=== PATIENT | male | born 1965 | race Caucasian/White ===

== ENCOUNTER 2017-12-16 18:17 | Observation (INO) ==
--- NOTE | 2017-12-16 18:47 | Emergency Department Note ---
ED Disposition Clinical Impression: Acute appendicitis Qualifiers: Acute appendicitis type: other Qualified Code(s): K35.89 - Other acute appendicitis Disposition: Admitted As Inpatient Condition on Discharge: Good Referrals: Jai Walton MD [Primary Care Provider] - Time of Disposition: 19:32 - Critical Care Critical Care Time: No Attestation: On 12/16/17, the high probability of a clinically significant, sudden or life threatening deterioration of the following system(s) required my full and direct attention, intervention and personal management. The time I documented below is in addition to time spent performing reported procedures but includes the following listed in this critical care notation. Medical Decision Making - Medical Records Medical records reviewed: Yes: I reviewed the patient's medical records. - [place] Inquiry Pt receiving controlled substance: No Vital Signs: 12/16/17 18:22 Temperature 98.3 F Temperature Source Oral Pulse Rate [Left Radial] 69 Respiratory Rate 20 Blood Pressure [Right Arm] 154/97 Blood Pressure Mean [Right Arm] 116 02 Sat by Pulse Oximetry 98 Oxygen Delivery Method Room Air - Lab Data Lab results reviewed: Yes: I reviewed the patient's lab results. Lab Results 12/16/17 18:40: Sodium 139, Potassium 3.9, Chloride 104, Carbon Dioxide 28, Anion Gap 10.9, BUN 15, Creatinine 1.09, Estimated Creat Clear 112, Estimated GFR 71, Est GFR ( Amer) 86, Glucose 121 H, Calcium 10.0, Total Bilirubin 0.4, AST 16, ALT 47, Alkaline Phosphatase 75, Total Protein 7.4, Albumin 4.0, Globulin 3.4 H, Albumin/Globulin Ratio 1.2, Amylase 31, Lipase 113 Result diagrams: 12/16/17 18:40 Orders (Tests/Meds): ED MEDICATIONS Generic Name Dose Route Start Last Admin Trade Name Freq PRN Reason Stop Dose Admin Sodium Chloride 1,000 mls @ 999 mls/hr 12/16/17 18:30 12/16/17 18:42 Sod Chlor 0.9% 1000ml Bag IV 12/16/17 19:30 999 mls/hr .Q1H1M KADE Administration Discontinued Medications Generic Name Dose Route Start Last Admin Trade Name Freq PRN Reason Stop Dose Admin Ketorolac Tromethamine 30 mg 12/16/17 18:26 12/16/17 18:42 Toradol 30mg/Ml Vial IV 12/16/17 18:27 30 mg ONCE ONE Administration Morphine Sulfate 4 mg 12/16/17 18:49 Morphine 4mg/Ml Syringe IV 12/16/17 18:50 ONCE ONE Ondansetron HCl 4 mg 12/16/17 18:26 12/16/17 18:42 Zofran 4mg/2ml Vial IV 12/16/17 18:27 4 mg ONCE ONE Administration ORDERS Category Date Time Status CT abdomen pelvis wo con Stat Cat Scan 12/16/17 18:27 Taken Complete Blood Count Auto Diff Stat Lab 12/16/17 18:40 Received Urinalysis and Microscopic Stat Lab 12/16/17 18:26 Ordered - CT Data CT Scan: Abdomen Time Received: 19:[address] Reviewed: Yes: I have reviewed the patient's CT results, I discussed the CT results w/the radiologist, I have viewed the radiologist's interpretation Preliminary Findings: Abnormal Findings Narrative: Dilated appendix, consistent with early appendicitis. - Physician Consults Physician Consulted: Dr. Mcdaniel Time: 19:31 Reason -: Admission, Pt condition Comment/Response: Advised of patient's presentation and findings, requested to call in eOR crew for laparoscopic appendectomy, will come in the Er to eval pt. Nausea/Vomiting/Diarrhea HPI - General Chief complaint: Nausea/Vomiting/Diarrhea Stated complaint: abd pain Time Seen by Provider: 12/16/17 18:22 Mode of Arrival: Ambulatory Source of Information: Patient Limitations: No Limitations Description of Symptoms (Recalled from ER Triage Doc. by RN): Pt states that he has been feeling nauseated and having abdomen pain all day today. Denies any diarrhea or vomiting. - History of Present Illness HPI Narrative: Patient is a 52-year-old male patient presented to the emergency room with lower abdominal pain, since earlier this morning, associated with nausea, but no vomiting. Patient denies any previous similar episodes in the past. Patient denies any recent travel or exposure to sick contacts. MD complaint: nausea, abdominal pain Description of Vomiting: food contents Associated Abdominal Pain: Yes Location of pain: epigastric Radiation: periumbilical Severity: moderate Severity scale (1-10): 4 Quality: cramping Consistency: intermittent Relieving factors: none Exacerbating factors: eating Associated symptoms: denies other symptoms - Related Data Home Medications Medication Instructions Recorded Confirmed No Known Home Medications 12/16/17 12/16/17 Allergies Allergy/AdvReac Type Severity Reaction Status Date / Time No Known Allergies Allergy Verified 12/16/17 18:28 [facility] History I have reviewed the patient's past medical history: Yes Medical History: Denies:: Diabetes Mellitus Type 1, Diabetes Mellitus Type 2 - Social History Smoking Status: Former smoker Alcohol Intake: current Alcohol Intake Frequency:: holidays/special occasions only - Psychiatric History Expresses thoughts of harming self/others: None Suicide Plan Description: No Plan ROS Obtained: Yes All systems reviewed & no additional complaints, Yes Systems reviewed as appropriate & no additional complaints - Gastrointestinal Gastrointestingal: Reports: system reviewed and no additional complaints, except as docu, as per HPI, abdominal pain, nausea Physical Exam - General General appearance: alert, in distress (moderate) - Head Head exam: atraumatic, normocephalic, normal inspection - Neck Neck exam: Present: normal inspection, full ROM, trachea midline. Absent: meningismus, lymphadenopathy - Chest Chest inspection: Present: normal inspection, symmetric chest wall rise. Absent : tenderness - Respiratory Respiratory exam: Present: normal lung sounds bilaterally. Absent: respiratory distress - Cardiovascular Cardiovascular exam: Present: regular rate, normal rhythm. Absent: JVD - Abdominal Exam Abdominal exam: Present: soft, tenderness (RLQ), guarding, rebound, normal bowel sounds. Absent: distention - Extremities Exam Extremities exam: Present: normal inspection, full ROM, normal capillary refill. Absent: calf tenderness - Back Exam Back exam: Present: normal inspection. Absent: tenderness - Neurological Exam Neurological exam: Present: alert, oriented X3 - Psychiatric Psychiatric exam: Present: normal affect, normal mood - Skin Skin exam: Present: warm, dry, intact, normal color - Lymphatic Lymphatic Findings: no adenopathy
[2017-12-16 18:48] LABS: Basophils # 0.1 K/mm3 (0-0.2); Basophils % 0.4 % (0.1-2.0); Eosinophils # 0.1 K/mm3 (0.0-0.4); Eosinophils % 0.6 % (0.1-12.0); Hematocrit 44.5 % (42.0-52.0); Hemoglobin 14.8 g/dL (14.1-18.0); Lymphocytes # 1.4 K/mm3 (0.7-4.5); Lymphocytes % 11.3 K/mm3 (10-50); Mean Corpuscular HGB Conc 33.3 g/dL (31.8-35.4); Mean Corpuscular Hemoglobin 29.7 pg (27.0-31.2); Mean Corpuscular Volume 89.2 fl (80-94); Mean Platelet Volume 7.8 fl (7.4-10.4); Monocytes # 0.5 K/mm3 (0.1-1.0); Neutrophils # 10.2 K/mm3 (1.8-7.8); Neutrophils % 83.7 % (37.0-80.0); Platelet Count 344 K/mm3 (142-424); Red Blood Count 4.99 M/mm3 (4.60-6.20); Red Cell Distribution Width 13.5 % (11.5-17.5); White Blood Count 12.2 K/mm3 (4.8-10.8)
[2017-12-16 19:16] LABS: Albumin/Globulin Ratio 1.2 (1.1-1.8); Anion Gap 10.9 mEq/L (5-15); Bilirubin,Total 0.4 mg/dL (0.2-1.0); Globulin 3.4 gm/dl (1.3-3.2); Potassium 3.9 mmoL/L (3.5-5.1); Total Protein,Serum 7.4 gm/dL (6.4-8.2)
--- NOTE | 2017-12-16 19:46 | History & Physical Report ---
HPI HPI: Abdominal pain Patient is a 52-year-old white male. He states that he was in his usual state of health until approximately 10:00 this morning at which time he began experiencing mid abdominal pain. He did go to work. He was unable to eat. The pain persisted and became more severe and he presented to the emergency department. He underwent CT scan which revealed findings of 1.7 cm thickened appendix with fat stranding consistent with acute appendicitis. Surgical consultation was obtained. [facility] History Medical History: Denies:: Diabetes Mellitus Type 1, Diabetes Mellitus Type 2 - *Social History Smoking Status: Former smoker Alcohol Intake: current Alcohol Intake Frequency:: holidays/special occasions only - Psychiatric History Expresses thoughts of harming self/others: None Suicide Plan Description: No Plan Review of Systems - Constitutional Reports anorexia - Eyes Denies change in vision - ENT Denies abnormal hearing - *Cardiovascular Denies chest pain - *Respiratory Denies shortness of breath - *Gastrointestinal Reports abdominal pain, Reports bloating - *Genitourinary Denies difficulty urinating - *Musculoskeletal Denies abnormal walking - *Neurologic Denies dizziness - Psychiatric Denies anxiety Meds Home Medications Medication Instructions Recorded Confirmed Type No Known Home Medications 12/16/17 12/16/17 History Allergies Allergy/AdvReac Type Severity Reaction Status Date / Time No Known Allergies Allergy Verified 12/16/17 18:28 Exam Vital signs and Labs for Last 24 Hours: Temp Pulse Resp BP Pulse Ox 98.3 F 69 20 154/97 98 12/16/17 18:22 12/16/17 18:22 12/16/17 18:22 12/16/17 18:22 12/16/17 18:22 Laboratory Results - last 24 hr 12/16/17 18:40: Sodium 139, Potassium 3.9, Chloride 104, Carbon Dioxide 28, Anion Gap 10.9, BUN 15, Creatinine 1.09, Estimated Creat Clear 112, Estimated GFR 71, Est GFR ( Amer) 86, Glucose 121 H, Calcium 10.0, Total Bilirubin 0.4, AST 16, ALT 47, Alkaline Phosphatase 75, Total Protein 7.4, Albumin 4.0, Globulin 3.4 H, Albumin/Globulin Ratio 1.2, Amylase 31, Lipase 113 I & O for Last 24 hours: Intake & Output 12/14/17 12/15/17 12/16/17 12/17/17 11:59 11:59 11:59 11:59 Weight 217 lb - Constitutional no acute distress - *Routine Respiratory Exam Present: CTA bilaterally - *Routine Cardiovascular Exam Present: RRR - *Routine Abdominal Exam Present: tenderness, distended Results - Results Lab Results Last 24 Hours:: Laboratory Results - last 24 hr 12/16/17 18:40: Sodium 139, Potassium 3.9, Chloride 104, Carbon Dioxide 28, Anion Gap 10.9, BUN 15, Creatinine 1.09, Estimated Creat Clear 112, Estimated GFR 71, Est GFR ( Amer) 86, Glucose 121 H, Calcium 10.0, Total Bilirubin 0.4, AST 16, ALT 47, Alkaline Phosphatase 75, Total Protein 7.4, Albumin 4.0, Globulin 3.4 H, Albumin/Globulin Ratio 1.2, Amylase 31, Lipase 113 Assessment and Plan - Assessment and plan all Dx Assessment and Plan for all problems:: Patient has CT scan evidence consistent with acute appendicitis. Plan will be for emergent appendectomy.
--- NOTE | 2017-12-16 20:24 | Progress Note ---
[facility] Anesthesia Checklist - Patient Identification Patient Identification: Arm Band, Verbal (Name & ) - Structural Data Admitted From: Home Consent for Planned Operative Procedure(s) Verified: Yes Verified Documents: Surgical Consent, History and Physical - NPO Status Verified Time NPO: 08:00 (Chips) - Additional verifications Anesthesia Reactions: No - Airway Assessment C-Spine Mobility Assessed: Yes TMJ Mobility Assessed: Yes Dentition: Good Dentition - Neurological Assessment Level of Consciousness: Awake Hx Seizures: No Numbness or tingling in extremities: No - Anesthesia Plan Anesthesia Risk discussed: Yes Anesthesia Plan: Verified ASA Class: II Anesthesia Type: General [facility] Anesthesia HX I have reviewed the patient's past medical history: Yes Medical History: Reports:: Hyperlipidemia Denies:: Diabetes Mellitus Type 1, Diabetes Mellitus Type 2, Seizures Other Medical History: Reports: Other (Obesity, former smoker 08/2017) Other Surgeries: Yes: Colonoscopy Amputation: No Fractures: No
--- NOTE | 2017-12-16 22:00 | Operative Note ---
Date of procedure: 12/16/17 Pre-op Diagnosis:: Acute appendicitis Post-op Diagnosis:: Same Procedure performed:: Laparoscopic appendectomy Surgeon:: Kj Mcdaniel MD Anesthesia: BELLE Estimated blood loss (mL): 20 Clinical Note:: Patient is a 52-year-old white male. He was in his usual state of health until earlier in the day on 12/16/17 at which time he experienced mid abdominal pain. He actually did go to work. He was unable to eat lunch. Pain persisted and progressed and he presented to the emergency department in the early evening of 12/16/17. He was found to have a mild leukocytosis and CT scan revealed findings of a severely distended appendix measuring 1.7 cm with fat stranding. Surgical consultation was obtained. Patient was seen and examined as consult in the emergency department and plan was made for appendectomy. Operative findings:: Patient had a markedly distended very tense but nonnecrotic appendicitis. It was partially retrocecal. Operative note:: Consent was obtained. Patient was taken to the operating room. He was given preoperative intravenous antibiotics. He was placed in a supine position. General anesthesia was induced. Abdomen was prepped and draped in the standard surgical fashion. Please note the Correa catheter was placed prior to prepping and draping. Subumbilical skin incision was made and while performing abdominal wall lift Veress needle was inserted. CO2 pneumoperitoneum was achieved to 15 mmHg. 12 mm optical trocar was inserted at the umbilicus. Intraperitoneal contents were visualized. He was positioned in Trendelenburg left side down. 5 mm trocar was inserted in the left lower quadrant. 5 mm trocar was inserted in the right upper abdomen. 0 laparoscope was replaced with the 5 mm 30 laparoscope. Appendix was easily identified but dissection to the appendiceal base was quite difficult. Appendix was grasped with an endoscopic Trenary. There appeared to be some acute and chronic adhesions to the appendix and it was somewhat corkscrewed and the base of the appendix was retrocecal. Dissection to the base of the appendix required some division of the peritoneal attachments laterally. Metzenbaum and blunt dissection was used. Ultimately dissection was carried down to the base of the appendix. The mesoappendix was divided with David ultrasonic harmonic lily with care taken to coagulate the appendiceal artery. Once dissection was clearly carried down to the appendiceal base the appendix was divided at its base with an endoscopic TAY linear cutting stapling device. The appendix was placed within an Endo Catch retrieval device and removed from the peritoneal cavity via the umbilical trocar site which required some extension of both the fascial and skin incision for delivery. The pericecal location was irrigated and aspirated until clear. Appendiceal staple line was inspected for hemostasis and integrity. Trochars were removed as CO2 pneumoperitoneum was evacuated. Fascia at the umbilicus was closed with interrupted 0 Vicryl sutures. Local anesthetic was infiltrated into all incisions. Skin incisions were closed with 4-0 Monocryl in a subcuticular fashion. Steri-Strips and dressings were applied. Condition: stable Disposition: PACU Specimens:: Appendix Complications:: None immediate
--- NOTE | 2017-12-16 22:13 | Progress Note ---
[facility] Anesthesia Record Part I Intake, IV Amount: 800 Estimated blood loss (mL): 20 Urine output (mL): 100 Blood Products used (#): none Blood Pressure: 151/96 SaO2: 96 Pulse Rate: 93 Respiratory Rate: 15 Temperature: 97.5 F Patient is:: Awake, Stable Stable to PACU at:: 22:07
--- NOTE | 2017-12-16 22:14 | Progress Note ---
[facility] Anesthesia Record Part II Discharge Time: 22:37 Destination: Medical Surgical Department PACU nurse assessment reviewed?: Yes Patient Condition:: Good Anesthesia Complications:: None
[2017-12-16 23:59] LABS: Appearance,Urine CLEAR (Clear); Bilirubin,Urine Negative (Negative); Blood, Urine Negative (Negative); Color,Urine YELLOW (Yellow); Glucose,Urine (UA) Negative (Negative); Ketones,Urine 1+ (Negative); Leukocyte Esterase,Urine Negative (Negative); Microscopic, Urine URINE MICROSCOPIC (MICROSCOPIC); PH,Urine 5.5 (5.0-8.5); Protein,Urine TRACE (Negative); Specific Gravity, Urine >= 1.030 (1.005-1.030); Urobilinogen,Urine 0.2 EU/dl (0.2)
[2017-12-17 00:09] LABS: Bacteria,Urine Trace /lpf; Fine Granular Casts,Urine Occasional #/lpf (0); Hyaline Casts,Urine Occasional #/lpf (0); Mucus,Urine 1+ /lpf; Squamous Epithelial Cell,Urine Occasional #/hpf (0-5)
[2017-12-17 06:03] LABS: Albumin Level 3.1 gm/dL (3.4-5.0); Albumin/Globulin Ratio 1.1 (1.1-1.8); Anion Gap 11.3 mEq/L (5-15); Bilirubin,Total 0.4 mg/dL (0.2-1.0); Globulin 2.9 gm/dl (1.3-3.2); Potassium 4.3 mmoL/L (3.5-5.1)
[2017-12-17 06:10] LABS: Calcium 8.5 mg/dL (8.5-10.1)
--- NOTE | 2017-12-17 07:04 | Progress Note ---
Subjective Patient reports: feels better Narrative: Patient overall feels better. He is tolerating clear liquids. Exam Vital signs and Labs for Last 24 Hours: Temp Pulse Resp BP Pulse Ox 98.0 F 72 18 119/64 97 12/17/17 05:45 12/17/17 05:45 12/17/17 05:45 12/17/17 05:45 12/17/17 05:45 Laboratory Results - last 24 hr 12/16/17 18:40: WBC 12.2 H, RBC 4.99, Hgb 14.8, Hct 44.5, MCV 89.2, MCH 29.7, MCHC 33.3, RDW 13.5, Plt Count 344, MPV 7.8, Neut % (Auto) 83.7 H, Lymph % (Auto ) 11.3, [place] % (Auto) 4.0, Eos % (Auto) 0.6, Baso % (Auto) 0.4, Neut # (Auto) 10.2 H, Lymph # (Auto) 1.4, [place] # (Auto) 0.5, Eos # (Auto) 0.1, Baso # (Auto) 0.1 12/16/17 18:40: Sodium 139, Potassium 3.9, Chloride 104, Carbon Dioxide 28, Anion Gap 10.9, BUN 15, Creatinine 1.09, Estimated Creat Clear 112, Estimated GFR 71, Est GFR ( Amer) 86, Glucose 121 H, Calcium 10.0, Total Bilirubin 0.4, AST 16, ALT 47, Alkaline Phosphatase 75, Total Protein 7.4, Albumin 4.0, Globulin 3.4 H, Albumin/Globulin Ratio 1.2, Amylase 31, Lipase 113 12/16/17 20:45: Urine Color Yellow, Urine Appearance Clear, Urine pH 5.5, Ur Specific [place] >= 1.030, Urine Protein Trace, Urine Glucose (UA) Negative, Urine Ketones 1+, Urine Blood Negative, Urine Nitrate Negative, Urine Bilirubin Negative, Urine Urobilinogen 0.2, Ur Leukocyte Esterase Negative, Urine RBC 5-10 , Urine WBC 3-5, Ur Squamous Epith Cells Occasional, Urine Bacteria Trace, Hyaline Casts Occasional, Fine Granular Casts Occasional, Urine Mucus 1+ 12/17/17 05:20: Sodium 137, Potassium 4.3, Chloride 104, Carbon Dioxide 26, Anion Gap 11.3, BUN 12, Creatinine 1.03, Estimated Creat Clear 127, Estimated GFR 76, Est GFR ( Amer) 92, Glucose 126 H, Calcium 8.5 D, Total Bilirubin 0.4, AST 15, ALT 37, Alkaline Phosphatase 62, Total Protein 6.0 L, Albumin 3.1 L D, Globulin 2.9, Albumin/Globulin Ratio 1.1 I & O for Last 24 hours: Intake & Output 12/14/17 12/15/17 12/16/17 12/17/17 11:59 11:59 11:59 11:59 Intake Total 1693 / 1693 Output Total 700 / 700 Balance 993 / 993 Weight 233 lb 3 oz - *Routine Abdominal Exam Present: soft, distended Progress Note: A&P Assessment and Plan for All Diagnoses:: Advance to full liquids. Check white blood cell count. Probable discharge later.
[2017-12-17 10:53] LABS: Basophils % 0.1 % (0.1-2.0); Eosinophils # 0.1 K/mm3 (0.0-0.4); Eosinophils % 1.2 % (0.1-12.0); Hematocrit 37.3 % (42.0-52.0); Lymphocytes # 1.8 K/mm3 (0.7-4.5); Lymphocytes % 18.4 K/mm3 (10-50); Mean Corpuscular HGB Conc 32.3 g/dL (31.8-35.4); Mean Corpuscular Hemoglobin 28.6 pg (27.0-31.2); Mean Corpuscular Volume 88.4 fl (80-94); Mean Platelet Volume 8.4 fl (7.4-10.4); Monocytes # 0.7 K/mm3 (0.1-1.0); Neutrophils # 7.2 K/mm3 (1.8-7.8); Neutrophils % 73.3 % (37.0-80.0); Platelet Count 301 K/mm3 (142-424); Red Blood Count 4.22 M/mm3 (4.60-6.20); Red Cell Distribution Width 13.6 % (11.5-17.5); White Blood Count 9.8 K/mm3 (4.8-10.8)
[2017-12-17 11:06] LABS: Hemoglobin 12.1 g/dL (14.1-18.0)
--- NOTE | 2017-12-17 13:47 | Discharge Summary ---
General - General Admission date:: 12/16/17 Discharge date: 12/17/17 HPI HPI: Abdominal pain Patient is a 52-year-old white male. He states that he was in his usual state of health until approximately 10:00 this morning at which time he began experiencing mid abdominal pain. He did go to work. He was unable to eat. The pain persisted and became more severe and he presented to the emergency department. He underwent CT scan which revealed findings of 1.7 cm thickened appendix with fat stranding consistent with acute appendicitis. Surgical consultation was obtained. Hospital Course Hospital Course: Patient was taken to the operating room in the evening of 12/16/17 and underwent laparoscopic appendectomy. He was found to have a significantly inflamed but non-perforated appendicitis. Please see operative dictation for complete details. Postoperatively he was continued on Unasyn. He was given a clear liquid diet. The following morning white blood cell count had normalized. He was advanced to a full liquid diet which he tolerated well at lunch time. Arrangements were made for discharge home early after lunch on postoperative day #1. Objective Vital signs: Temp Pulse Resp BP Pulse Ox 98.6 F 55 L 18 114/65 95 12/17/17 11:45 12/17/17 11:45 12/17/17 11:45 12/17/17 11:45 12/17/17 11:45 - *Routine Abdominal Exam Present: soft, distended Results Labs on day of discharge: Labs from last 24 hours 12/17/17 12/17/17 12/16/17 10:45 05:20 20:45 WBC 9.8 RBC 4.22 L Hgb 12.1 L D Hct 37.3 L MCV 88.4 MCH 28.6 MCHC 32.3 RDW 13.6 Plt Count 301 MPV 8.4 Neut % (Auto) 73.3 Lymph % (Auto) 18.4 [place] % (Auto) 7.0 Eos % (Auto) 1.2 Baso % (Auto) 0.1 Neut # (Auto) 7.2 Lymph # (Auto) 1.8 [place] # (Auto) 0.7 Eos # (Auto) 0.1 Baso # (Auto) 0.0 Sodium 137 Potassium 4.3 Chloride 104 Carbon Dioxide 26 Anion Gap 11.3 BUN 12 Creatinine 1.03 Estimated Creat Clear 127 Estimated GFR 76 Est GFR ( Amer) 92 Glucose 126 H Calcium 8.5 D Total Bilirubin 0.4 AST 15 ALT 37 Alkaline Phosphatase 62 Total Protein 6.0 L Albumin 3.1 L D Globulin 2.9 Albumin/Globulin Ratio 1.1 Amylase Lipase Urine Color Yellow Urine Appearance Clear Urine pH 5.5 Ur Specific [place] >= 1.030 Urine Protein Trace Urine Glucose (UA) Negative Urine Ketones 1+ Urine Blood Negative Urine Nitrate Negative Urine Bilirubin Negative Urine Urobilinogen 0.2 Ur Leukocyte Esterase Negative Urine RBC 5-10 Urine WBC 3-5 Ur Squamous Epith Cells Occasional Urine Bacteria Trace Hyaline Casts Occasional Fine Granular Casts Occasional Urine Mucus 1+ 12/16/17 12/16/17 18:40 18:40 WBC 12.2 H RBC 4.99 Hgb 14.8 Hct 44.5 MCV 89.2 MCH 29.7 MCHC 33.3 RDW 13.5 Plt Count 344 MPV 7.8 Neut % (Auto) 83.7 H Lymph % (Auto) 11.3 [place] % (Auto) 4.0 Eos % (Auto) 0.6 Baso % (Auto) 0.4 Neut # (Auto) 10.2 H Lymph # (Auto) 1.4 [place] # (Auto) 0.5 Eos # (Auto) 0.1 Baso # (Auto) 0.1 Sodium 139 Potassium 3.9 Chloride 104 Carbon Dioxide 28 Anion Gap 10.9 BUN 15 Creatinine 1.09 Estimated Creat Clear 112 Estimated GFR 71 Est GFR ( Amer) 86 Glucose 121 H Calcium 10.0 Total Bilirubin 0.4 AST 16 ALT 47 Alkaline Phosphatase 75 Total Protein 7.4 Albumin 4.0 Globulin 3.4 H Albumin/Globulin Ratio 1.2 Amylase 31 Lipase 113 Urine Color Urine Appearance Urine pH Ur Specific [place] Urine Protein Urine Glucose (UA) Urine Ketones Urine Blood Urine Nitrate Urine Bilirubin Urine Urobilinogen Ur Leukocyte Esterase Urine RBC Urine WBC Ur Squamous Epith Cells Urine Bacteria Hyaline Casts Fine Granular Casts Urine Mucus DS: Diagnosis - Discharge Diagnosis (1) Acute appendicitis Status: Acute Discharge Plan - Patient Discharge Instructions ACTIVITY: No heavy lifting DIET: advance to your usual diet Additional Instructions: Work excuse until after office appointment. - Follow up Plan Follow up with: Jai Walton MD [Primary Care Provider] - Kj Mcdaniel MD [Staff Physician] - 01/03/18 Disposition: Home, Self-Detention Medications: Home Medications Medication Instructions Recorded Confirmed Type Pravastatin Sodium 10 mg PO DAILY 12/17/17 12/17/17 History Varenicline Tartrate [Chantix 1mg 1 mg PO BID 12/17/17 12/17/17 History tablet] Prescriptions/Medication Reconciliation: New Hydrocod/Acet 5/325 mg [[place] 5/325mg tablet] 1 - 2 tab PO Q6HP PRN #21 tab PRN Reason: Moderate Pain Continue Pravastatin Sodium 10 mg PO DAILY Varenicline Tartrate [Chantix 1mg tablet] 1 mg PO BID
== END 2017-12-17 14:33 | disposition home or self-care (01) ==
LOC: ER 18:17 → SDC 20:30 → 2ND 20:32
PROVIDERS: ADMIT Surgery; ATTEND Surgery
CPT/HCPCS: 36415; 74176; 80053; 81001; 82150; 83690; 85025; 96365; 96375; 99284; G0378; J2405

== ENCOUNTER → 2020-01-08 16:35 | Outpatient (CLI) | payer BC, SELFPAY ==
[2020-01-08 17:05] LABS: Basophils # 0.1 K/mm3 (0-0.2); Basophils % 0.6 % (0.1-2.0); Eosinophils # 0.1 K/mm3 (0.0-0.4); Eosinophils % 1.2 % (0.1-12.0); Hematocrit 44.2 % (42.0-52.0); Hemoglobin 15.8 g/dL (14.1-18.0); Lymphocytes # 2.6 K/mm3 (0.7-4.5); Lymphocytes % 30.6 % (10-50); Mean Corpuscular HGB Conc 35.7 g/dL (31.8-35.4); Mean Corpuscular Hemoglobin 31.2 pg (27.0-31.2); Mean Corpuscular Volume 87.4 fl (80-94); Mean Platelet Volume 8.1 fl (7.4-10.4); Monocytes # 0.5 K/mm3 (0.1-1.0); Monocytes % 6.1 % (1.7-9.3); Neutrophils # 5.2 K/mm3 (1.8-7.8); Neutrophils % 61.5 % (37.0-80.0); Platelet Count 339 K/mm3 (142-424); Red Blood Count 5.06 M/mm3 (4.60-6.20); Red Cell Distribution Width 13.2 % (11.5-17.5); White Blood Count 8.4 K/mm3 (4.8-10.8)
[2020-01-08 17:09] LABS: Erythrocyte Sedimentation Rate 9 mm/hr (0-20)
[2020-01-08 17:33] LABS: Alanine Aminotransferase 52 U/L (12-78); Alkaline Phosphatase 69 U/L (38-126); Anion Gap 13.7 mEq/L (5-15); Aspartate Amino Transferase 31 U/L (17-59); Bilirubin,Total 0.7 mg/dl (0.2-1.3); Blood Urea Nitrogen 12 mg/dl (9-20); Calcium 10.5 mg/dl (8.4-10.2); Carbon Dioxide 27 mmol/L (22.0-30.0); Chloride 101 mmol/L (98-107); Chol/HDL Ratio 2.7 (1-3.5); Cholesterol 186 mg/dl (140-200); Estimated Glomerular Filt Rate 88 ml/min (>60); GFR (African American) 107 ML/MIN (>60); Globulin 2.5 g/dL (1.3-3.2); Glucose 114 mg/dl (74-100); HDL Cholesterol 69 mg/dl (40-60); Potassium 4.7 mmoL/L (3.5-5.1); Sodium 137 mmol/L (136-145); Total Protein,Serum 7.5 g/dl (6.3-8.2); Triglycerides 160 mg/dl (30-150); VLDL Cholesterol 32 mg/dL (0-40)
[2020-01-08 17:44] LABS: Direct LDL Cholesterol 106.05 mg/dL (100-129)
[2020-01-08 17:50] LABS: Free T4 (Free Thyroxine) 1.11 ng/dl (0.78-2.19)
[2020-01-08 18:03] LABS: Thyroid Stimulating Hormone 1.75 uIU/mL (0.465-4.68)
== END ==
PROVIDERS: Visit Provider Emergency Medicine
DX: R53.83 Other fatigue (principal); E55.9 Vitamin D deficiency, unspecified; E78.5 Hyperlipidemia, unspecified; E66.9 Obesity, unspecified
CPT/HCPCS: 80053; 80061; 82306; 84439; 84443; 85025; 85651

== ENCOUNTER 2020-03-11 11:00 | Outpatient (RCR) | payer BC, SELFPAY ==
--- NOTE | 2020-03-11 11:28 | HMH.PTOPEV ---
PT Outpatient Evaluation Rehab PT Outpatient Evaluation Start: 03/11/20 11:19 Freq: Status: Active Protocol: Document 03/11/20 11:19 KATHLEEN (Rec: 03/11/20 11:28 KATHLEEN [id number]) Electronically Signed By Maurice Tipton, PT 03/11/20 11:19 Outpatient Therapy Subjective History Subjective History Pt reports h/o chronic bilateral leg pain for ~2 yrs. Pt reports intermittent LBP, however, 'I don't really feel like it's related, just normal gettin' older back pain'. Pt reports currently B thigh/quad area pain from hip to knee, R =L. Chief Complaint Pain Symptom Type Ache,Sharp,Dull Symptoms Relieved By Rest/Positioning,Heat Symptoms Aggravated By Standing,Walking Prior Functional Limitations Lifting,Standing,Walking Current Functional Limitations Lifting,Standing,Walking Symptom Description Constant but Variable Level of pain today (0-10) 7 Pain scale - at its best (0-10) 7 Pain scale - at its worst (0-10) 7 Lumbopelvic Eval Posture Thoracic Spine Posture Standing Position Neutral Lumbar Spine Posture Standing Position Neutral Assistive device Assistive Devices None / NA Gait Observation General Gait Pattern Observation No Deviations/Normal Palapation tenderness bilateral lumbar spinal tenderness Yes: 2/4 Lumbar/Sacral Palpation Findings Tenderness Lumbar/Sacral Palpation Overall Comment 2/4 midline Accessory Movement L-spine Vertebrae Accessory Movements Central P/A [place] that [place] Symptoms L2 bilateral L3 bilateral L4 bilateral L5 bilateral Range of Motion Lumbar Spine Active Flexion Range of 0-70 Motion (degrees) Lumbar Spine Active Extension Range of 0-10 Motion (degrees) Left Lumbar Spine Lateral Flexion Active 0-20 Range of Motion (degrees) Right Lumbar Spine Lateral Flexion 0-20 Active Range of Motion (degrees) Lumbar Spine ROM Limitations Soft Tissue Tightness,Pain Manual Muscle Test Bilateral Knee Extension Strength Grade 5 Normal Knee Flexion Strength Grade 5 Normal Hip Flexion Strength Grade 5 Normal Hip Abduction Strength Grade 4 Good Hip Adduction Strength Grade 4 Good Hip External Rotation Strength Grade 4 Good Hip Internal Rotation Strength Grade 4 Good Hip Extension Strength Grade 5 Normal Extensor Hallucis Longus Strength Grade 5 Normal Ankle Dorsiflexion Strength Grade 5 Normal Gastronemius/Soleus Strength Grade 5 Normal D
== END 2020-03-11 11:49 | disposition home or self-care (01) ==
LOC: PT 11:00
PROVIDERS: PCP Emergency Medicine; Visit Provider Emergency Medicine
DX: M54.9 Dorsalgia, unspecified (principal)
CPT/HCPCS: 97163

== ENCOUNTER → 2020-10-14 13:50 | Outpatient (CLI) | payer BC, SELFPAY ==
[2020-10-14 14:56] LABS: Amphetamine/Metha Screen,Urine Negative ng/ml (<1000)
[2020-10-14 14:57] LABS: Barbiturates Screen,Urine Negative ng/ml (<200)
[2020-10-14 14:58] LABS: Benzodiazepines Screen,Urine Negative ng/ml (<200); Cannabinoid Screen,Urine Negative ng/ml (<50)
[2020-10-14 14:59] LABS: Cocaine Screen,Urine Negative ng/ml (<300); Methadone Screen,Urine Negative ng/ml (<300)
[2020-10-14 15:00] LABS: Opiate Screen,Urine Negative ng/ml (<300)
[2020-10-14 15:01] LABS: Phencyclidine Screen,Urine Negative ng/ml (<25)
== END ==
PROVIDERS: Visit Provider Emergency Medicine
DX: Z79.899 Other long term (current) drug therapy (principal)
CPT/HCPCS: 80305

== ENCOUNTER → 2020-11-15 16:24 | Outpatient (CLI) | payer BC, SELFPAY ==
[2020-11-15 17:43] LABS: Coronavirus 19 IgG Antibody Positive (Negative); Coronavirus 19 IgM Antibody Negative (Negative)
== END ==
PROVIDERS: PCP Emergency Medicine; Visit Provider Surgery
DX: Z01.812 Encounter for preprocedural laboratory examination (principal); Z20.822 Contact with and (suspected) exposure to COVID-19; Z12.11 Encounter for screening for malignant neoplasm of colon
CPT/HCPCS: 86328

== ENCOUNTER 2020-11-16 09:01 | Day surgery (SDC) | payer BC, SELFPAY ==
[2020-11-15 09:11] VITALS: BMI 32.8
[2020-11-16 09:29] VITALS: BP 147/83; PULSE 81; RESP 18; TEMP 36.6; O2SAT 97
[2020-11-16 10:15] VITALS: O2SAT 97
[2020-11-16 10:59] VITALS: BP 92/68; PULSE 80; RESP 18; TEMP 36.4; O2SAT 98
--- NOTE | 2020-11-16 11:03 | P.PCN_ITS ---
- Procedure: Date: 11/16/20 Patient Date of :: 1965 Procedure Performed:: Total colonoscopy to terminal ileum with polypectomy using snare and biopsy forceps Indications:: Patient is a 55-year-old male whom I have seen in the past for previous colonoscopy as well as for appendectomy. He underwent colonoscopy on 03/26/2017 and had polyps removed. He does have a family history and his father had of colon cancer diagnosed at the age of 56. He is currently asymptomatic. Performing Provider:: Kj Mcdaniel MD Referring Provider:: Leo Osborn MD Sedation:: MAC sedation Procedure:: Patient was taken to endoscopy procedure room. He was positioned in lateral decubitus position. Adequate intravenous sedation was achieved. Variable sti ffness Olympus colonoscope was inserted via the anus. Was advanced to the cecum with some difficulty due to floppy redundant somewhat atonic colon, particularly sigmoid colon. The ileocecal valve and appendiceal remnant were clearly identified. Colonoscope was briefly advanced into the terminal ileum. Colonoscope was withdrawn through the colon with careful surveillance. At the hepatic flexure there was a small diminutive benign-appearing polyp removed with cold cutting snare. Transverse colon revealed a polyp removed with cold biopsy forceps and residual polyp with snare. The sigmoid colon there was a somewhat pedunculated polyp removed with cold cutting snare. Retroflexion within the rectum revealed no evidence of any pathologic internal hemorrhoids. Colonoscope was withdrawn. Findings:: Small polyps as noted Somewhat atonic redundant sigmoid colon Recommendations:: Likely repeat colonoscopy 3 years Complications:: None immediately apparent Estimated blood obtained (mL): 2
[2020-11-16 11:09] VITALS: BP 114/68; PULSE 70; RESP 16; O2SAT 95
[2020-11-16 11:19] VITALS: BP 117/80; PULSE 80; RESP 16; O2SAT 95
--- NOTE | 2020-11-16 11:22 | P.PN_ITS ---
[facility] Anesthesia Checklist - Patient Identification Patient Identification: Arm Band - Structural Data Admitted From: Home Planned Operative Procedure/s: Colonoscopy Consent for Planned Operative Procedure(s) Verified: Yes Verified Documents: Surgical Consent, History and Physical - NPO Status Verified Time NPO: 00:00 - Additional verifications Anesthesia Reactions: No Hx Blood Transfusions: No - Airway Assessment C-Spine Mobility Assessed: Yes TMJ Mobility Assessed: Yes Dentition: Good Dentition - Neurological Assessment Level of Consciousness: Awake, Alert - Anesthesia Plan Anesthesia Risk discussed: Yes Anesthesia Plan: Verified ASA Class: II Anesthesia Type: MAC [facility] History Medical History: Reports:: Hyperlipidemia Denies:: Cancer, Diabetes Mellitus Type 1, Diabetes Mellitus Type 2, Internal Pacemaker, MRSA, Seizures *Have you ever received a pneumonia vaccine?: No *Have you received a flu vaccine this season?: No Other Medical History: Reports: Other Anesthesia experience/problems:: None Other Surgeries: Yes: Appendectomy, Colonoscopy. No: Pacemaker Amputation: No Fractures: No - *Social History Smoking Status: Former smoker Tobacco Type: smokeless tobacco # Packs/Day (cigarettes): 1 Alcohol Intake: never Alcohol Intake Frequency:: holidays/special occasions only Substance Use Type: denies use *Occupational Status:: employed Housing: house *Travel in the last 8 weeks: None Family Hx:: No significant family history
[2020-11-16 11:29] VITALS: BP 116/79; PULSE 72; RESP 18; O2SAT 95
== END 2020-11-16 11:29 | disposition home or self-care (01) ==
LOC: OUTP 09:02
PROVIDERS: PCP Emergency Medicine; Visit Provider Surgery
PROC: 0DJD8ZZ Inspection of Lower Intestinal Tract, Via Natural or Artificial Opening Endoscopic (ICD-10-PCS; CPT 45385; principal; 2020-11-16 10:00)
DX: Z12.11 Encounter for screening for malignant neoplasm of colon (principal); Z86.010 Personal history of colon polyps; Z80.0 Family history of malignant neoplasm of digestive organs; K63.5 Polyp of colon; K56.2 Volvulus; E78.5 Hyperlipidemia, unspecified; Z90.49 Acquired absence of other specified parts of digestive tract; Z87.891 Personal history of nicotine dependence
CPT/HCPCS: 45385; J2704

== ENCOUNTER → 2020-12-19 18:05 | Outpatient (CLI) | payer BC, SELFPAY ==
[2020-12-19 19:18] LABS: Amphetamine/Metha Screen,Urine Negative ng/ml (<1000); Barbiturates Screen,Urine Negative ng/ml (<200)
[2020-12-19 19:19] LABS: Benzodiazepines Screen,Urine Negative ng/ml (<200)
[2020-12-19 19:20] LABS: Cannabinoid Screen,Urine Negative ng/ml (<50)
[2020-12-19 19:21] LABS: Cocaine Screen,Urine Negative ng/ml (<300)
[2020-12-19 19:22] LABS: Methadone Screen,Urine Negative ng/ml (<300); Opiate Screen,Urine Negative ng/ml (<300)
[2020-12-19 19:24] LABS: Phencyclidine Screen,Urine Negative ng/ml (<25)
== END ==
PROVIDERS: Visit Provider Emergency Medicine
DX: Z79.899 Other long term (current) drug therapy (principal)
CPT/HCPCS: 80305

== ENCOUNTER → 2021-02-15 18:04 | Outpatient (CLI) | payer BC, SELFPAY ==
[2021-02-15 19:25] LABS: Amphetamine/Metha Screen,Urine Negative ng/ml (<1000)
[2021-02-15 19:26] LABS: Barbiturates Screen,Urine Negative ng/ml (<200)
[2021-02-15 19:27] LABS: Benzodiazepines Screen,Urine Negative ng/ml (<200); Cannabinoid Screen,Urine Negative ng/ml (<50)
[2021-02-15 19:28] LABS: Cocaine Screen,Urine Negative ng/ml (<300); Methadone Screen,Urine Negative ng/ml (<300)
[2021-02-15 19:29] LABS: Opiate Screen,Urine Positive ng/ml (<300)
[2021-02-15 19:30] LABS: Phencyclidine Screen,Urine Negative ng/ml (<25)
== END ==
PROVIDERS: Visit Provider Emergency Medicine
DX: M54.16 Radiculopathy, lumbar region (principal)
CPT/HCPCS: 80305

== ENCOUNTER → 2021-06-16 17:51 | Outpatient (CLI) | payer BC, SELFPAY ==
[2021-06-16 19:49] LABS: Amphetamine/Metha Screen,Urine Negative ng/ml (<1000)
[2021-06-16 19:50] LABS: Barbiturates Screen,Urine Negative ng/ml (<200); Benzodiazepines Screen,Urine Negative ng/ml (<200)
[2021-06-16 19:51] LABS: Cannabinoid Screen,Urine Negative ng/ml (<50)
[2021-06-16 19:52] LABS: Cocaine Screen,Urine Negative ng/ml (<300); Methadone Screen,Urine Negative ng/ml (<300)
[2021-06-16 19:53] LABS: Opiate Screen,Urine Positive ng/ml (<300)
[2021-06-16 19:54] LABS: Phencyclidine Screen,Urine Negative ng/ml (<25)
== END ==
PROVIDERS: Visit Provider Emergency Medicine
DX: M54.16 Radiculopathy, lumbar region (principal)
CPT/HCPCS: 80305

== ENCOUNTER → 2021-08-07 17:11 | Outpatient (CLI) | payer BC, SELFPAY | PROVIDERS: Visit Provider Nurse Practitioner Family | DX: U07.1 COVID-19 (principal) | CPT/HCPCS: C9803; U0003; U0005 ==

== ENCOUNTER → 2021-08-18 15:59 | Outpatient (CLI) | payer BC, SELFPAY ==
[2021-08-18 17:00] LABS: Amphetamine/Metha Screen,Urine Negative ng/ml (<1000)
[2021-08-18 17:01] LABS: Barbiturates Screen,Urine Negative ng/ml (<200); Benzodiazepines Screen,Urine Negative ng/ml (<200)
[2021-08-18 17:02] LABS: Cannabinoid Screen,Urine Negative ng/ml (<50)
[2021-08-18 17:03] LABS: Cocaine Screen,Urine Negative ng/ml (<300); Methadone Screen,Urine Negative ng/ml (<300)
[2021-08-18 17:04] LABS: Opiate Screen,Urine Positive ng/ml (<300); Phencyclidine Screen,Urine Negative ng/ml (<25)
== END ==
PROVIDERS: PCP Emergency Medicine; Visit Provider Emergency Medicine
DX: Z79.899 Other long term (current) drug therapy (principal)
CPT/HCPCS: 80305

== ENCOUNTER → 2021-10-13 10:31 | Outpatient (CLI) | payer BC, SELFPAY | PROVIDERS: Visit Provider Emergency Medicine | DX: M54.16 Radiculopathy, lumbar region (principal) | CPT/HCPCS: 87086 ==

== ENCOUNTER → 2021-12-12 11:52 | Outpatient (CLI) | payer BC, SELFPAY ==
[2021-12-12 19:00] LABS: Barbiturates Screen,Urine Negative ng/ml (<200); Benzodiazepines Screen,Urine Negative ng/ml (<200)
[2021-12-12 19:01] LABS: Amphetamine/Metha Screen,Urine Negative ng/ml (<1000)
[2021-12-12 19:02] LABS: Cannabinoid Screen,Urine Negative ng/ml (<50); Methadone Screen,Urine Negative ng/ml (<300)
[2021-12-12 19:03] LABS: Cocaine Screen,Urine Negative ng/ml (<300)
[2021-12-12 19:04] LABS: Opiate Screen,Urine Negative ng/ml (<300); Phencyclidine Screen,Urine Negative ng/ml (<25)
== END ==
PROVIDERS: PCP Nurse Practitioner Family; Visit Provider Nurse Practitioner Family
DX: M54.16 Radiculopathy, lumbar region (principal)
CPT/HCPCS: 80305

== ENCOUNTER → 2022-04-06 07:21 | Outpatient (CLI) | payer BC, SELFPAY ==
[2022-04-06 18:56] LABS: Amphetamine/Metha Screen,Urine Negative ng/ml (<1000)
[2022-04-06 18:57] LABS: Barbiturates Screen,Urine Negative ng/ml (<200); Benzodiazepines Screen,Urine Negative ng/ml (<200)
[2022-04-06 18:58] LABS: Cannabinoid Screen,Urine Negative ng/ml (<50)
[2022-04-06 18:59] LABS: Cocaine Screen,Urine Negative ng/ml (<300); Methadone Screen,Urine Negative ng/ml (<300)
[2022-04-06 19:00] LABS: Opiate Screen,Urine Negative ng/ml (<300)
[2022-04-06 19:01] LABS: Phencyclidine Screen,Urine Negative ng/ml (<25)
== END ==
PROVIDERS: PCP Emergency Medicine; Visit Provider Emergency Medicine
DX: M54.16 Radiculopathy, lumbar region (principal)
CPT/HCPCS: 80305

== ENCOUNTER → 2022-06-01 13:45 | Outpatient (CLI) | payer BC, SELFPAY ==
[2022-06-01 17:44] LABS: Basophils # 0.1 K/mm3 (0-0.2); Basophils % 0.9 % (0.1-2.0); Eosinophils # 0.1 K/mm3 (0.0-0.4); Eosinophils % 1.1 % (0.1-12.0); Hematocrit 43.8 % (42.0-52.0); Hemoglobin 14.6 g/dL (14.1-18.0); Lymphocytes # 2.9 K/mm3 (0.7-4.5); Lymphocytes % 31.3 % (10-50); Mean Corpuscular HGB Conc 33.3 g/dL (31.8-35.4); Mean Corpuscular Hemoglobin 29.5 pg (27.0-31.2); Mean Corpuscular Volume 88.7 fl (80-94); Mean Platelet Volume 8.2 fl (7.4-10.4); Monocytes # 0.4 K/mm3 (0.1-1.0); Monocytes % 4.4 % (1.7-9.3); Neutrophils # 5.7 K/mm3 (1.8-7.8); Neutrophils % 62.3 % (37.0-80.0); Platelet Count 420 K/mm3 (142-424); Red Blood Count 4.94 M/mm3 (4.60-6.20); Red Cell Distribution Width 13.3 % (11.5-17.5); White Blood Count 9.1 K/mm3 (4.8-10.8)
[2022-06-01 18:37] LABS: Alanine Aminotransferase 65 U/L (12-78); Albumin Level 4.6 g/dl (3.5-5.0); Albumin/Globulin Ratio 1.9 (1.1-1.8); Alkaline Phosphatase 92 U/L (38-126); Anion Gap 16.5 mEq/L (5-15); Aspartate Amino Transferase 53 U/L (17-59); Bilirubin,Total 0.4 mg/dl (0.2-1.3); Blood Urea Nitrogen 14 mg/dl (9-20); Calcium 10.3 mg/dl (8.4-10.2); Carbon Dioxide 25 mmol/L (22.0-30.0); Chloride 104 mmol/L (98-107); Chol/HDL Ratio 4.2 (1-3.5); Cholesterol 217 mg/dl (140-200); Estimated Glomerular Filt Rate 88 ml/min (>60); GFR (African American) 106 ML/MIN (>60); Globulin 2.4 g/dL (1.3-3.2); Glucose 101 mg/dl (74-100); HDL Cholesterol 52 mg/dl (40-60); Potassium 4.5 mmoL/L (3.5-5.1); Sodium 141 mmol/L (136-145); Triglycerides 224 mg/dl (30-150); VLDL Cholesterol 45 mg/dL (0-40)
[2022-06-01 18:47] LABS: Direct LDL Cholesterol 119.47 mg/dL (100-129)
[2022-06-01 18:52] LABS: Free T4 (Free Thyroxine) 1.04 ng/dl (0.78-2.19)
[2022-06-01 18:54] LABS: 25-OH Vitamin D, Total 13.7 ng/mL (30-100)
[2022-06-01 19:06] LABS: Thyroid Stimulating Hormone 1.52 uIU/mL (0.465-4.68)
[2022-06-01 20:58] LABS: Amphetamine/Metha Screen,Urine Negative ng/ml (<1000); Barbiturates Screen,Urine Negative ng/ml (<200)
[2022-06-01 20:59] LABS: Benzodiazepines Screen,Urine Negative ng/ml (<200); Cannabinoid Screen,Urine Negative ng/ml (<50)
[2022-06-01 21:00] LABS: Cocaine Screen,Urine Negative ng/ml (<300)
[2022-06-01 21:01] LABS: Methadone Screen,Urine Negative ng/ml (<300); Opiate Screen,Urine Negative ng/ml (<300)
[2022-06-01 21:02] LABS: Phencyclidine Screen,Urine Negative ng/ml (<25)
== END ==
PROVIDERS: PCP Emergency Medicine; Visit Provider Emergency Medicine
DX: M54.16 Radiculopathy, lumbar region (principal); E55.9 Vitamin D deficiency, unspecified; E66.9 Obesity, unspecified; Z68.34 Body mass index [BMI] 34.0-34.9, adult
CPT/HCPCS: 80053; 80061; 80305; 82306; 84439; 84443; 85025

== ENCOUNTER → 2022-09-21 10:00 | Outpatient (CLI) | payer BC, SELFPAY ==
[2022-09-21 19:19] LABS: Amphetamine/Metha Screen,Urine Negative ng/ml (<1000)
[2022-09-21 19:20] LABS: Barbiturates Screen,Urine Negative ng/ml (<200)
[2022-09-21 19:21] LABS: Benzodiazepines Screen,Urine Negative ng/ml (<200); Cannabinoid Screen,Urine Negative ng/ml (<50)
[2022-09-21 19:22] LABS: Cocaine Screen,Urine Negative ng/ml (<300)
[2022-09-21 19:23] LABS: Methadone Screen,Urine Negative ng/ml (<300); Opiate Screen,Urine Positive ng/ml (<300)
[2022-09-21 19:24] LABS: Phencyclidine Screen,Urine Negative ng/ml (<25)
== END ==
PROVIDERS: PCP Emergency Medicine; Visit Provider Emergency Medicine
DX: Z79.899 Other long term (current) drug therapy (principal)
CPT/HCPCS: 80305

== ENCOUNTER → 2022-10-01 14:48 | Outpatient (CLI) | payer BC, SELFPAY ==
--- NOTE | 2022-10-01 14:48 | US_ITS ---
FINAL REPORT CLINICAL HISTORY: firm nodule anterior neck FINDINGS: US NECK SOFT TISSUE Limited sonographic images were obtained of the anterior neck and under the right eye. In the anterior neck is an oval 1.5 cm mildly hypervascular area that does not represent a lymph node. The under the right eye is an oval hypoechoic 1.4 cm nodule of unclear etiology. IMPRESSION: Hypervascular area in the anterior neck does not appear to represent a lymph node. Hypoechoic nodule measuring 1.4 cm on the right eye. These are of unclear etiology. Consider CT. Reviewed, Interpreted and Dictated by Lambert Pittman MD Transcribed by Jamie Turner Authenticated and [facility]
== END ==
PROVIDERS: PCP Emergency Medicine; Visit Provider Student in an Organized Health Care Education/Training Program
DX: R22.1 Localized swelling, mass and lump, neck (principal)
CPT/HCPCS: 76536

== ENCOUNTER → 2022-10-02 11:00 | Outpatient (CLI) | payer BC, SELFPAY | PROVIDERS: PCP Student in an Organized Health Care Education/Training Program; Visit Provider Student in an Organized Health Care Education/Training Program | DX: R22.1 Localized swelling, mass and lump, neck (principal) ==

== ENCOUNTER 2022-10-09 11:21 | Emergency (ER) | payer BC, SELFPAY ==
[2022-10-09 11:32] VITALS: BP 146/95; PULSE 79; RESP 18; TEMP 36.6; O2SAT 98; BMI 35.6
[2022-10-09 12:03] VITALS: BP 126/79; PULSE 71; RESP 20; TEMP 36.6; O2SAT 96; BMI 35.9
--- NOTE | 2022-10-09 12:07 | EXP.UTC ---
Discharge Plan Disposition Patient Disposition: Home, Self-Care Condition: Good Prescriptions Prescriptions: No Action pravastatin 20 mg tablet 20 mg PO DAILY doxycycline hyclate 100 mg tablet 100 mg PO BID 10 Days Qty: 20 0RF cholecalciferol (vitamin D3) 1,250 mcg (50,000 unit) capsule 1,250 mcg PO WEEKLY Qty: 14 3RF gabapentin 600 mg tablet 600 mg PO TID trazodone 50 mg tablet 50 mg PO HS phentermine [Adipex-P] 37.5 mg tablet 37.5 mg PO DAILY Rx Instructions: must administer 30 minutes before or 1-2 hours after breakfast oxycodone-acetaminophen 10-325 mg tablet See Rx Instructions .ROUTE .COMPLEX Rx Instructions: Take one tablet 4 times daily and one qhs; lisinopril 10 mg tablet 10 mg PO DAILY Referrals Follow up/Referrals: Juan Luis Richards MD [Physician] - See instructions (Call office today to make appointment next week as you was directed) Henry Osborn MD [Primary Care Provider] - See instructions Activity Restrictions/Add. Instructions Additional Instructions/Restrictions: Do not pop or squeeze the area CT as scheduled Make follow up appointment with ENT for further evaluation and treatment Straight to ER if you have any trouble swallowing or breathing FInish prescribed medications Clinical Impressions Clinical Impression: Skin problem Stand Alone Forms Stand Alone Forms: Work/School Release Discharge ED Provider: Yecenia Sanchez [facility] General Stated complaint: possible abcess on neck Mode of Arrival: Ambulatory Source of Information: Patient Limitations: No Limitations Time Seen by Provider: 10/09/22 12:07 Description of Symptoms (Recalled from Triage Doc. by RN): pt presents to ED stating that he has been treated for an abscess on his neck. pt states he wanted to come and have someone look at the abscess due to it changing colors. pt denies any fever. pt denies any difficulty swallowing. History of Present Illness Provider Complaint: Patient states that he had a knot come up on his neck about 2 weeks ago and he seen someone and was put on antibiotics States that it hasnt got any bigger and has had US but states that it has since changed colors and he was worried about it States that he has appointment for CT on Saturday States that he denies issues with swallowing or breathing and has been eating ok Related Data Home Medications Medication Instructions Recorded Confirmed pravastatin 20 mg tablet 20 mg PO DAILY . 09/21/22 10/09/22 gabapentin 600 mg tablet 600 mg PO TID . 10/09/22 10/09/22 lisinopril 10 mg tablet 10 mg PO DAILY . 10/09/22 10/09/22 oxycodone-acetaminophen 10 mg-325 See Rx Instructions .Route 10/09/22 10/09/22 mg tablet .COMPLEX . phentermine 37.5 mg tablet 37.5 mg PO DAILY . 10/09/22 10/09/22 (Adipex-P) trazodone 50 mg tablet 50 mg PO HS . 10/09/22 10/09/22 Previous Rx's Medication Instructions Recorded cholecalciferol (vitamin D3) 1,250 1,250 mcg PO WEEKLY #14 caps 06/04/22 mcg (50,000 unit) capsule doxycycline hyclate 100 mg tablet 100 mg PO BID 10 days #20 tabs 09/28/22 Allergies Allergy/AdvReac Type Severity Reaction Status Date / Time No Known Allergies Allergy Verified 10/09/22 12:08 [facility] Disclaimer: The information contained in this section may have been updated after the patient was seen, as this information can be updated by other users. Medical History Hyperlipidemia Hypertension Social History Smoking Status: Former smoker second hand exposure: No alcohol intake: never counseling provided: none substance use type: denies use current occupational status: employed Travel in the last 8 weeks: None housing: house current occupation: [employer] current occupational exposures/hazards: No caffeine: Yes ROS Obtained: Yes All systems review
[2022-10-09 12:42] VITALS: BP 126/79; PULSE 71; RESP 20; TEMP 36.6; O2SAT 96
== END 2022-10-09 12:41 | disposition home or self-care (01) ==
LOC: ER 11:33 → UTC 11:33
PROVIDERS: Emergency Provider Nurse Practitioner; PCP Emergency Medicine
DX: L02.11 Cutaneous abscess of neck (principal); B95.7 Other staphylococcus as the cause of diseases classified elsewhere
CPT/HCPCS: 87070; 87077; 87186; 87205; 99212; 99214; G0463

== ENCOUNTER → 2022-11-23 23:25 | Outpatient (CLI) | payer BC, SELFPAY ==
[2022-11-23 19:24] LABS: Barbiturates Screen,Urine Negative ng/ml (<200)
[2022-11-23 19:25] LABS: Amphetamine/Metha Screen,Urine Negative ng/ml (<1000)
[2022-11-23 19:26] LABS: Benzodiazepines Screen,Urine Negative ng/ml (<200); Cannabinoid Screen,Urine Negative ng/ml (<50)
[2022-11-23 19:27] LABS: Cocaine Screen,Urine Negative ng/ml (<300)
[2022-11-23 19:29] LABS: Methadone Screen,Urine Negative ng/ml (<300); Opiate Screen,Urine Positive ng/ml (<300)
[2022-11-23 19:30] LABS: Phencyclidine Screen,Urine Negative ng/ml (<25)
== END ==
PROVIDERS: PCP Emergency Medicine; Visit Provider Emergency Medicine
DX: Z79.899 Other long term (current) drug therapy (principal)
CPT/HCPCS: 80305

== ENCOUNTER → 2023-02-21 14:10 | Outpatient (CLI) | payer BC, SELFPAY ==
[2023-02-21 14:18] LABS: MANUAL DIFFERENTIAL MANUAL DIFFERENTIAL (MANUAL DIFF)
--- NOTE | 2023-02-21 14:49 | ECG_ITS ---
APPROVED REPORT Exam: Resting ECG HR:81 bpm ECG Measurements Heart Rate 81 AXES [place] 144 P 6 QRSd 102 QRS -3 QT 373 T 52 QTc 411 Conclusion SINUS RHYTHM NORMAL ECG UNCONFIRMED REPORT Electronically signed by : Jai Yap MD 02/21/2023 21:18:45
[2023-02-21 15:21] LABS: Basophils % 0.5 % (0.1-2.0); Eosinophils # 0.1 K/mm3 (0.0-0.4); Hematocrit 42.8 % (42.0-52.0); Hemoglobin 14.1 g/dL (14.1-18.0); Lymphocytes # 2.1 K/mm3 (0.7-4.5); Lymphocytes % 21.9 % (10-50); Mean Corpuscular Hemoglobin 28.5 pg (27.0-31.2); Mean Corpuscular Volume 86.1 fl (80-94); Mean Platelet Volume 8.3 fl (7.4-10.4); Monocytes # 0.6 K/mm3 (0.1-1.0); Monocytes % 5.7 % (1.7-9.3); Neutrophils # 6.8 K/mm3 (1.8-7.8); Platelet Count 438 K/mm3 (142-424); Red Blood Count 4.96 M/mm3 (4.60-6.20); White Blood Count 9.6 K/mm3 (4.8-10.8)
[2023-02-21 15:33] LABS: Alanine Aminotransferase 31 U/L (12-78); Albumin Level 4.5 g/dl (3.5-5.0); Albumin/Globulin Ratio 1.7 (1.1-1.8); Alkaline Phosphatase 90 U/L (38-126); Aspartate Amino Transferase 25 U/L (17-59); Bilirubin,Total 0.4 mg/dl (0.2-1.3); Blood Urea Nitrogen 14 mg/dl (9-20); Carbon Dioxide 29 mmol/L (22.0-30.0); Chloride 104 mmol/L (98-107); Estimated Glomerular Filt Rate 117 ml/min (>60); GFR (African American) 141 ML/MIN (>60); Globulin 2.7 g/dL (1.3-3.2); Glucose 113 mg/dl (74-100); Sodium 141 mmol/L (136-145); Total Protein,Serum 7.2 g/dl (6.3-8.2)
[2023-02-21 15:50] LABS: Eosinophils % 1 % (0-3); Lymphocytes % 24 % (10-50); Monocytes % 3 % (2-9); Neutrophils % 72 % (42-76); Platelet Estimate Normal; RBC Morphology Normal; Total Cells Counted 100
== END ==
PROVIDERS: PCP Emergency Medicine; Visit Provider Nurse Practitioner
DX: Z01.818 Encounter for other preprocedural examination (principal); L98.9 Disorder of the skin and subcutaneous tissue, unspecified
CPT/HCPCS: 36415; 80053; 85007; 85014; 85018; 85048; 85049; 93005

== ENCOUNTER → 2023-02-22 14:00 | Outpatient (CLI) | payer BC, SELFPAY ==
--- NOTE | 2023-02-22 14:00 | CT_ITS ---
FINAL REPORT CLINICAL HISTORY: lung cancer screening. former smoker , quit 6 years ago. smoked 2 ppd x 25 years FINDINGS: CTDI vol (mGy): 2.90 DLP: 164.[address] images of the chest were obtained using the low-dose protocol for screening. There is no evidence of mediastinal or hilar mass or adenopathy. No axillary mass or adenopathy is identified. On the lung window images, no pulmonary mass or suspicious nodule is identified. There is mild emphysema and mild scarring. Multiple granulomas are present. Mild coronary artery calcifications are noted. IMPRESSION: Lung RADS category 1 . Recommend 12 month followup low-dose CT for further evaluation. Reviewed, Interpreted and Dictated by Kj Andrews III, MD Transcribed by Zulema Alvarado Authenticated and . [facility]
== END ==
PROVIDERS: PCP Emergency Medicine; Visit Provider Emergency Medicine
DX: Z87.891 Personal history of nicotine dependence (principal); Z12.2 Encounter for screening for malignant neoplasm of respiratory organs
CPT/HCPCS: 71271

== ENCOUNTER → 2023-03-06 08:40 | Day surgery (SDC) | payer BC, SELFPAY ==
--- NOTE | 2023-03-04 11:26 | SUR.PREOP ---
spoke with pt for pre-op and said that leision on his nose has open and drained 2 days ago. TC to [facility] to inform. Sx placed on hold and [facility] to call pt to have him come in to office for evaluation.
[2023-03-04 13:40] VITALS: BMI 33.5
--- NOTE | 2023-03-21 14:06 | PC.NURSE ---
Spoke with patient about a HST and he said he would like to hold off at this time due to medication change.
== END ==
PROVIDERS: PCP Emergency Medicine; Visit Provider Otolaryngology
DX: Z53.9 Procedure and treatment not carried out, unspecified reason (principal)

== ENCOUNTER → 2023-03-15 12:00 | Outpatient (CLI) | payer BC, SELFPAY ==
[2023-03-15 19:59] LABS: Barbiturates Screen,Urine Negative ng/ml (<200)
[2023-03-15 20:01] LABS: Amphetamine/Metha Screen,Urine Negative ng/ml (<1000)
[2023-03-15 20:03] LABS: Benzodiazepines Screen,Urine Negative ng/ml (<200); Cocaine Screen,Urine Negative ng/ml (<300)
[2023-03-15 20:04] LABS: Cannabinoid Screen,Urine Negative ng/ml (<50)
[2023-03-15 20:05] LABS: Methadone Screen,Urine Negative ng/ml (<300); Phencyclidine Screen,Urine Negative ng/ml (<25)
[2023-03-15 20:06] LABS: Opiate Screen,Urine Positive ng/ml (<300)
== END ==
PROVIDERS: PCP Emergency Medicine; Visit Provider Emergency Medicine
DX: M54.16 Radiculopathy, lumbar region (principal)
CPT/HCPCS: 80305

== ENCOUNTER → 2023-05-10 23:25 | Outpatient (CLI) | payer BC, SELFPAY ==
[2023-05-10 18:43] LABS: Amphetamine/Metha Screen,Urine Negative ng/ml (<1000); Barbiturates Screen,Urine Negative ng/ml (<200)
[2023-05-10 18:44] LABS: Benzodiazepines Screen,Urine Negative ng/ml (<200)
[2023-05-10 18:46] LABS: Methadone Screen,Urine Negative ng/ml (<300)
[2023-05-10 18:47] LABS: Cannabinoid Screen,Urine Negative ng/ml (<50); Cocaine Screen,Urine Negative ng/ml (<300)
[2023-05-10 18:48] LABS: Opiate Screen,Urine Positive ng/ml (<300)
[2023-05-10 18:49] LABS: Phencyclidine Screen,Urine Negative ng/ml (<25)
== END ==
PROVIDERS: PCP Emergency Medicine; Visit Provider Emergency Medicine
DX: M54.16 Radiculopathy, lumbar region (principal)
CPT/HCPCS: 80305

== ENCOUNTER 2023-07-25 19:06 | Outpatient (CLI) | payer BC, SELFPAY ==
[2023-07-25 19:56] LABS: Chol/HDL Ratio 4.1 (1-3.5); Cholesterol 184 mg/dl (140-200); HDL Cholesterol 45 mg/dl (40-60); Triglycerides 314 mg/dl (30-150); VLDL Cholesterol 63 mg/dL (0-40)
[2023-07-25 20:08] LABS: Direct LDL Cholesterol 103.85 mg/dL (100-129)
[2023-07-25 20:16] LABS: 25-OH Vitamin D, Total 42.8 ng/mL (30-100)
[2023-07-25 20:27] LABS: Creatinine,Urine Random 175 mg/dL (Not Estab.)
[2023-07-25 20:28] LABS: Prostate Specific Ag Screen 0.2 ng/ml (0.0-4.0)
[2023-07-25 21:15] LABS: Amphetamine/Metha Screen,Urine Negative ng/ml (<1000); Barbiturates Screen,Urine Negative ng/ml (<200); Benzodiazepines Screen,Urine Negative ng/ml (<200); Cannabinoid Screen,Urine Negative ng/ml (<50); Cocaine Screen,Urine Negative ng/ml (<300); Methadone Screen,Urine Negative ng/ml (<300); Opiate Screen,Urine Positive ng/ml (<300); Phencyclidine Screen,Urine Negative ng/ml (<25)
== END 2023-07-25 23:59 ==
LOC: LAB.DROPOF 19:06
PROVIDERS: PCP Internal Medicine; Visit Provider Internal Medicine
DX: E78.5 Hyperlipidemia, unspecified (principal); E66.9 Obesity, unspecified; Z68.35 Body mass index [BMI] 35.0-35.9, adult; Z79.899 Other long term (current) drug therapy; Z12.5 Encounter for screening for malignant neoplasm of prostate
CPT/HCPCS: 80061; 80307; 82043; 82306; 82570; G0103

== ENCOUNTER 2023-12-30 08:38 | Day surgery (SDC) | payer BC, SELFPAY ==
[2023-12-27 11:00] VITALS: BMI 36.5
[2023-12-30 08:55] VITALS: BP 123/79; PULSE 90; RESP 18; TEMP 36.1; O2SAT 95
[2023-12-30] MEDS: LACTATED RINGERS 1000ML 1,000 ML 25 ML IV (09:08)
--- NOTE | 2023-12-30 09:10 | HMH.SCOPE ---
Procedure: Date: 12/30/23 Patient Date of :: 1965 Procedure Performed:: Aborted colonoscopy Indications:: Patient is a 58-year-old male. Primary care provider is Dr. Albaro Rojas. He has a family history of colon cancer in his father in his 50s. He had a colonoscopy in 2017 at which time he had polyps removed. Colonoscopy performed on 11/16/2020 revealed sessile serrated adenoma x 2 and 2-year follow-up was recommended. . Performing Provider:: Kj Mcdaniel MD Referring Provider:: Albaro Roy MD Sedation:: MAC sedation Procedure:: Patient history was obtained and appropriate physical examination was performed. Patient's medications and allergies were reviewed. Informed consent was obtained after explaining the benefits, alternatives, and risks of the procedure including, but not limited to, bleeding, perforation, missed lesions, and adverse reaction to anesthesia medications. Patient was transported to endoscopy procedure room. Patient was connected to monitoring devices. Throughout the procedure the patient's blood pressure, pulse, and oxygen saturations were monitored continuously. Patient identification and planned procedure were verified by the staff. Patient was positioned in lateral decubitus position. Digital anorectal exam was performed. Variable stiffness Olympus colonoscope was inserted. There was thick liquid opaque particulate stool encountered. Colonoscope was able to be advanced beyond this and there was additional thick liquid stool. High-volume trans colonoscopic irrigation and suctioning was performed. Colonoscope was advanced further and prep became progressively poor with decreasing visualization with thicker stool. Therefore colonoscopy was aborted and the colonoscope was withdrawn. Findings:: Poor prep Recommendations:: Repeat colonoscopy with multi day maximum prep Complications:: None immediately apparent Estimated blood obtained (mL): 0 Colonoscopy Component Colonoscopy Component Was a colonoscopy performed during today's procedure?: No
[2023-12-30 09:21] VITALS: O2SAT 95
--- NOTE | 2023-12-30 09:30 | P.PNANES_ITS ---
[facility] Disclaimer: The information contained in this section may have been updated after the patient was seen, as this information can be updated by other users. Medical History Facial lesion Hyperlipidemia Lipid panel done July 25, 2023 reveals triglycerides of 314 total cholesterol 184 LDL of 103 and an HDL of 45. His triglycerides are little too high. He is on maximal dose pravastatin as well as fenofibrate which was added at the last visit. Will check a lipid panel the next time he returns. Hypertension Surgical History History of colonoscopy History of appendectomy Family History Other Colon cancer Social History Smoking Status: Smoker, status unknown tobacco type: smokeless tobacco second hand exposure: No alcohol intake: never counseling provided: none substance use type: denies use current occupational status: employed Travel in the last 8 weeks: None housing: house current occupation: [employer] current occupational exposures/hazards: No caffeine: Yes [facility] Anesthesia Checklist Patient Identification Patient Identification: Arm Band Structural Data Admitted From: Home Planned Operative Procedure/s: Colonoscopy Consent for Planned Operative Procedure(s) Verified: Yes Verified Documents: Surgical Consent and History and Physical NPO Status Verified Time NPO: 00:00 Additional verifications Anesthesia Reactions: No Hx Blood Transfusions: No Airway Assessment Mallampati Score:: Class II C-Spine Mobility Assessed: Yes TMJ Mobility Assessed: Yes Dentition: Good Dentition Neurological Assessment Level of Consciousness: Awake, Alert and Appropriate Anesthesia Plan Anesthesia Risk discussed: Yes Anesthesia Plan: Verified ASA Class: II Anesthesia Type: MAC
[2023-12-30 09:34] VITALS: BP 100/65; PULSE 85; RESP 16; TEMP 36.5; O2SAT 91
[2023-12-30 09:44] VITALS: BP 103/60; PULSE 84; RESP 16; O2SAT 95
[2023-12-30 09:54] VITALS: BP 127/88; PULSE 86; RESP 16; O2SAT 98
[2023-12-30 10:04] VITALS: BP 123/76; PULSE 86; RESP 16; O2SAT 98
== END 2023-12-30 10:05 | disposition home or self-care (01) ==
PROVIDERS: PCP Internal Medicine; Visit Provider Surgery
PROC: 0DJD8ZZ Inspection of Lower Intestinal Tract, Via Natural or Artificial Opening Endoscopic (ICD-10-PCS; CPT 45378; principal; 2023-12-30 09:30)
DX: Z80.0 Family history of malignant neoplasm of digestive organs (principal); Z86.010 Personal history of colon polyps; Z09 Encounter for follow-up examination after completed treatment for conditions other than malignant neoplasm; Z53.9 Procedure and treatment not carried out, unspecified reason
CPT/HCPCS: 45378; J7120

== ENCOUNTER 2024-03-05 07:21 | Outpatient (CLI) | payer BC, SELFPAY ==
[2024-03-05 08:40] LABS: Chol/HDL Ratio 3.3 (1-3.5); Cholesterol 191 mg/dl (140-200); HDL Cholesterol 58 mg/dl (40-60); Triglycerides 149 mg/dl (30-150); VLDL Cholesterol 30 mg/dL (0-40)
[2024-03-05 08:51] LABS: Direct LDL Cholesterol 92.63 mg/dL (100-129)
[2024-03-05 08:57] LABS: 25-OH Vitamin D, Total 28.6 ng/mL (30-100)
[2024-03-05 09:20] LABS: Hemoglobin A1C 5.8 % (4.0-6.0)
== END 2024-03-05 23:59 | disposition home or self-care (01) ==
LOC: LAB 07:22
PROVIDERS: PCP Internal Medicine; Visit Provider Internal Medicine
DX: E55.9 Vitamin D deficiency, unspecified (principal); E66.9 Obesity, unspecified; Z68.35 Body mass index [BMI] 35.0-35.9, adult; I10 Essential (primary) hypertension; F17.220 Nicotine dependence, chewing tobacco, uncomplicated
CPT/HCPCS: 36415; 80061; 82306; 83036

== ENCOUNTER 2024-04-03 09:28 | Day surgery (SDC) | payer BC, SELFPAY ==
[2024-04-01 13:29] VITALS: BMI 34.8
[2024-04-03 09:47] VITALS: BP 142/90; PULSE 93; RESP 18; TEMP 36.2; O2SAT 98
--- NOTE | 2024-04-03 09:50 | P.PCN_ITS ---
Procedure: Date: 04/03/24 Patient Date of :: 1965 Procedure Performed:: Total colonoscopy with polypectomy using biopsy forceps . Indications:: Patient is a 58-year-old male. He has a family history of colon cancer in his father diagnosed in his 50s. He had a colonoscopy in 2017 which revealed polyps. Colonoscopy on 11/16/2020 revealed sessile serrated adenoma x 2 and 2- year follow-up colonoscopy was recommended. Follow-up colonoscopy was attempted on 12/30/2023 however this had to be aborted due to poor preparation. Recommendations were for repeat colonoscopy with maximum prep. . Performing Provider:: Kj Mcdaniel MD Referring Provider:: Albaro Roy MD . Sedation:: MAC sedation Procedure:: Patient history was obtained and appropriate physical examination was performed. Patient's medications and allergies were reviewed. Informed consent was obtained after explaining the benefits, alternatives, and risks of the procedure including, but not limited to, bleeding, perforation, missed lesions, and adverse reaction to anesthesia medications. Patient was transported to endoscopy procedure room. Patient was connected to monitoring devices. Throughout the procedure the patient's blood pressure, pulse, and oxygen saturations were monitored continuously. Patient identification and planned procedure were verified by the staff. Patient was positioned in lateral decubitus position. Digital anorectal exam was performed. Variable stiffness Olympus colonoscope was inserted and advanced under direct visualization to the cecum. Adequacy of the colonic preparation was noted. The colonoscope was then slowly withdrawn while carefully examining the color, texture, anatomy, and integrity of the mucosoa circumferentially. Within the rectum retroflexion was performed. Colonoscope was then withdrawn. Impression: Colonic preparation was fair as there was a large amount of opaque particulate stool throughout the colon along with some undigested vegetable matter. High- volume trans colonoscopic irrigation and suctioning was performed. Due to redundancy and floppiness of the sigmoid colon he required abdominal pressure for advancement of the colonoscope to the cecum. Colonoscope was withdrawn with high-volume trans colonoscopic irrigation and suctioning which allowed for decent visualization. There were a couple polyps in the proximal rectum which were removed with cold biopsy forceps. 1 of these appeared to be possibly hyperplastic and what appeared to be possibly adenomatous. . Findings:: Fair preparation with large amount of opaque particulate stool throughout the colon with undigested vegetable matter Diminutive polyps in the proximal rectum as noted above . Recommendations:: Given family history, prior history of polyps, and suboptimal preparation likely repeat colonoscopy 2 years pending pathology. Recommend at least 1 week of low residue diet and maximum multi day prep prior to procedure. . Complications:: None immediately apparent Estimated blood obtained (mL): 1 Colonoscopy Component Colonoscopy Component Was a colonoscopy performed during today's procedure?: Yes Recommended follow up colonoscopy of at least 10 years?: No If no, follow up colonoscopy recommended in ___ years?: 2 Reason for not recommending >/= 10 yr follow-up interval?: See above
--- NOTE | 2024-04-03 09:55 | P.PNANES_ITS ---
[facility] Disclaimer: The information contained in this section may have been updated after the patient was seen, as this information can be updated by other users. Medical History History of COVID-19 Cervicothoracic interspinous bursitis Facial lesion Hyperlipidemia Hypertension Surgical History History of colonoscopy History of appendectomy Family History Other Colon cancer Social History Smoking Status: Former smoker tobacco type: smokeless tobacco second hand exposure: No alcohol intake: never counseling provided: none substance use type: denies use current occupational status: employed Travel in the last 8 weeks: None housing: house current occupation: [employer] current occupational exposures/hazards: No caffeine: Yes [facility] Anesthesia Checklist Patient Identification Patient Identification: Arm Band and Verbal (Name & ) Structural Data Admitted From: Home Planned Operative Procedure/s: Colonoscopy Consent for Planned Operative Procedure(s) Verified: Yes Verified Documents: Surgical Consent and History and Physical NPO Status Verified Time NPO: 02:00 Chart Verification Results Verified: CBC, BMP, ECG and Chest Xray Additional verifications Patient : No Anesthesia Reactions: No Hx Blood Transfusions: No Previous Colonoscopy: Yes Cardiovascular Assessment Heart Sounds: S1 & S2 Pulse Rhythm: Irregular Peripheral Edema: No Airway Assessment Mallampati Score:: Class III C-Spine Mobility Assessed: Yes (FROM demonstrated) TMJ Mobility Assessed: Yes Dentition: Poor Dentition (Bottom middle teeth missing. Nothing loose per pt.) Neurological Assessment Level of Consciousness: Awake, Alert, Appropriate and Follows Commands Hx Seizures: No Numbness or tingling in extremities: No Anesthesia Plan Anesthesia Risk discussed: Yes Anesthesia Plan: Verified ASA Class: III Anesthesia Type: MAC
[2024-04-03 10:03] VITALS: O2SAT 100
[2024-04-03 10:53] VITALS: BP 107/67; PULSE 94; RESP 18; TEMP 36.2; O2SAT 93
[2024-04-03 11:03] VITALS: BP 103/67; PULSE 88; RESP 18; O2SAT 95
[2024-04-03 11:13] VITALS: BP 107/68; PULSE 91; RESP 18; O2SAT 97
[2024-04-03 11:18] VITALS: BP 138/89; PULSE 89; RESP 18; O2SAT 98
== END 2024-04-03 11:23 | disposition home or self-care (01) ==
PROVIDERS: PCP Internal Medicine; Visit Provider Surgery
PROC: 0DJD8ZZ Inspection of Lower Intestinal Tract, Via Natural or Artificial Opening Endoscopic (ICD-10-PCS; CPT 45380; principal; 2024-04-03 10:30)
DX: Z86.010 Personal history of colon polyps (principal); Z80.0 Family history of malignant neoplasm of digestive organs; K63.5 Polyp of colon; D12.7 Benign neoplasm of rectosigmoid junction
CPT/HCPCS: 45380; J2704

== ENCOUNTER 2024-06-19 14:01 | Outpatient (POV) | payer BC, SELFPAY ==
[2024-06-19 14:34] VITALS: BP 142/89; PULSE 82; RESP 16; O2SAT 96; BMI 36.0
--- NOTE | 2024-06-19 14:58 | A.OFFVIS_ITS ---
HPI Data of Consult Patient: new to practice Consult date: 06/19/24 Requesting Physician: Caty Ferris APRN Primary Care Provider: Albaro Roy DO Consult Narrative Reason for consult: Low back pain, bilateral leg pain History of present illness: Mr. Silvestre is a 58 year old male who presents today as a new patient. He is a referral from Dr. Rojas's office. Today he rates his pain a 7 out of 10. Patient states he has significant pain throughout his low back that does radiate down into his bilateral lower extremities. He does state that it is a throbbing sensation with tingling. He states that it is constant and has gone on for at least 3 to 4 years. Patient states he has tried oral medications along with heat and ice and topicals with minimal relief. Patient denies any prior back surgery or injection history. He states that he does use his Percocet and that makes all the difference in his pain and that he would not be able to function without this medication. Patient denies any recent MRI imaging. Patient denies any specific trauma or injury that initially started his symptoms. Patient does believe that it is more wear and tear and that he has lifted something over the years and because of his current symptoms. Patient does state the pain interferes with his ability to perform activities of daily living such as cooking and cleaning. Patient does state that he has significant concern that the pain is going up progressively worsened to where he is going to have to retire early due to the chronic symptoms. His Henok has been reviewed and is appropriate. CC: Caty Ferris APRN [facility] Disclaimer: The information contained in this section may have been updated after the patient was seen, as this information can be updated by other users. Medical History History of COVID-19 Cervicothoracic interspinous bursitis Facial lesion Hyperlipidemia Hypertension Surgical History History of colonoscopy History of appendectomy Family History Other Colon cancer Social History Smoking Status: Former smoker tobacco type: smokeless tobacco second hand exposure: No alcohol intake: never counseling provided: none substance use type: denies use current occupational status: other Travel in the last 8 weeks: None housing: house current occupation: [employer] current occupational exposures/hazards: No caffeine: Yes Review of Systems Review of Systems Review of systems:: pertinent systems reviewed and negative unless documented below Review of systems (narrative): Review of Systems: General: No recent weight changes, no fever, no sleep disturbances Respiratory: No cough, no shortness of air, no recurring pulmonary infections Cardiovascular/peripheral vascular: No chest pain, no palpitations, no edema, no shortness of breath Gastrointestinal: No new onset incontinence, normal bowel movements reported Genitourinary: No new onset incontinence Musculoskeletal: Low back pain, bilateral leg numbness tingling Psychiatric: [Normal mood/affect] Neurological: [Denies weakness in extremities], [denies balance issues] Meds Home Medications and Allergies Home Medications ?Medication ?Instructions ?Recorded ?Confirmed ?Type lisinopril 10 mg tablet 10 mg PO DAILY BP 90 days #90 tabs 07/05/23 06/19/24 Rx cholecalciferol (vitamin D3) 125 125 mcg PO DAILY #30 caps 03/09/24 06/19/24 Rx mcg (5,000 unit) capsule oxycodone-acetaminophen 10 mg-325 1 tab PO Q4-6H PRN pain #120 tabs 04/09/24 06/19/24 Rx mg tablet fenofibrate 54 mg tablet See Rx Instructions .Route 04/28/24 06/19/24 Rx .COMPLEX #90 tabs pravastatin 40 mg tablet See Rx Instructions .Route 06/02/24 06/19/24 Rx .COMPLEX #30 tabs tizanidine 2 mg tablet See Rx Instructions .Route 06/02/24 06/19/24 Rx .COMPLEX #120 tabs oxycodone-acetaminophen 10 mg-325 1 tab PO Q4-6H PRN pain #120 tabs 06/03/24 06/19/24 Rx mg tablet New Prescriptions to Start Prescriptions: Allergies Allergy/AdvReac Type Severity Reaction Status Date / Time No Known Allergies Allergy Verified 04/09/24 14:44 Objective Vital signs: Pulse Resp BP Pulse Ox O2 Del Method 82 16 142/89 H 96 Room Air 06/19/24 14:34 06/19/24 14:34 06/19/24 14:34 06/19/24 14:34 06/19/24 14:34 Narrative: Physical Exam: General: Alert and oriented x3, no acute distress, pleasant and cooperative Lungs: Respirations even and unlabored, symmetrical chest expansion Eyes: PERRL Musculoskeletal: Flexion and extension of lumbar [spine] somewhat guarded secondary to pain, [antalgic gait noted] positive right leg raise Neurological: Speech clear, no gross sensory deficit Assessment and Plan *Assessment and plan (1) Degenerative disc disease, lumbar: Status: Acute Category: Medical Code(s): M51.369 - Other intervertebral disc degeneration, lumbar region without mention of lumbar back pain or lower extremity pain (2) Neurogenic claudication: Status: Acute Category: Medical Code(s): M48.062 - Spinal stenosis, lumbar region with neurogenic claudication (3) Lumbar radicular pain: Problem Comment: See above. Status: Acute Category: Medical Code(s): M54.16 - Radiculopathy, lumbar region Plan Patient is experiencing significant pain in his low back with numbness and tingling into his bilateral lower extremities. Patient did have limited range of motion of his lumbar spine and a positive right leg raise. I did discuss with the patient that I do believe he would benefit from a lumbar epidural steroid injection. Risk and benefits were discussed with the patient and he would like to proceed forward with this plan of care. Patient did have previous imaging that did show L4-L5 and L5 s1 arthritis and neuroforaminal narrowing with other findings. I did discuss with the patient that I would plan on doing an epidural at the L4-L5 level. Patient agrees with this plan of care. I will also order the patient a compounded cream. Patient has tried and failed conservative therapy including oral medication, heat and ice, topicals, prior physical therapy and continued at home stretching exercise for longer than 12 weeks. Patient will be scheduled for an LESI L4-L5 under fluoroscopy. Patient has been instructed to contact the clinic with any concerns before the next appointment. Dr. Sheriff has reviewed this note and agrees with this plan of care. This note was dictated using voice recognition software and make contain errors or omissions. All injections are used with Lidocaine or Bupivacaine and Depo Medrol.
== END 2024-06-19 23:59 | disposition home or self-care (01) ==
LOC: SC.PAIN 14:02
PROVIDERS: PCP Internal Medicine; Visit Provider Nurse Practitioner Family
DX: M51.16 Intervertebral disc disorders with radiculopathy, lumbar region (principal); M48.062 Spinal stenosis, lumbar region with neurogenic claudication; Z73.89 Other problems related to life management difficulty; Z87.891 Personal history of nicotine dependence
CPT/HCPCS: 99202; G0463

== ENCOUNTER 2024-06-30 09:17 | Outpatient (CLI) | payer BC, SELFPAY ==
[2024-06-30 19:07] LABS: 25-OH Vitamin D, Total 34.1 ng/mL (30-100)
[2024-06-30 19:20] LABS: Hemoglobin A1C 5.9 % (4.0-6.0)
== END 2024-06-30 23:59 | disposition home or self-care (01) ==
LOC: LAB.DROPOF 07-01 10:48
PROVIDERS: PCP Internal Medicine; Visit Provider Internal Medicine
DX: E55.9 Vitamin D deficiency, unspecified (principal); Z13.1 Encounter for screening for diabetes mellitus
CPT/HCPCS: 82306; 83036

== ENCOUNTER 2024-09-07 14:54 | Emergency (ER) | payer BC, SELFPAY ==
[2024-09-07 15:08] VITALS: BP 163/96; PULSE 107; RESP 19; TEMP 36.7; O2SAT 100; BMI 36.8
--- NOTE | 2024-09-07 15:17 | ED_ITS ---
<Statement entered by Caty Whitaker DO - 09/07/24 23:22> I was consulted by the CHONG, and we discussed the complexity of the problems being addressed. I approved the treatment and management plan for this patient's care in the emergency department, thus performing a substantive portion of the medical decision making. Caty Whitaker DO Discharge Plan Disposition Patient Disposition: Home, Self-Care Condition: Good Prescriptions Prescriptions: No Action oxycodone-acetaminophen 10-325 mg tablet 1 tab PO Q4-6H PRN (Reason: pain) Qty: 120 0RF oxycodone-acetaminophen 10-325 mg tablet 1 tab PO Q4-6H PRN (Reason: pain) Qty: 120 0RF tizanidine 2 mg tablet See Rx Instructions .ROUTE .COMPLEX Qty: 120 0RF Dose Instruction: TAKE ONE TABLET BY MOUTH 3 TIMES A DAY NEEDED FOR MUSCLE SPASMS. (MAY TAKE 2 TABLETS AT BEDTIME) Rx Instructions: TAKE ONE TABLET BY MOUTH 3 TIMES A DAY NEEDED FOR MUSCLE SPASMS. (MAY TAKE 2 TABLETS AT BEDTIME) pravastatin 80 mg tablet 80 mg PO DAILY Qty: 30 2RF cholecalciferol (vitamin D3) 125 mcg (5,000 unit) capsule See Rx Instructions .ROUTE .COMPLEX Qty: 30 0RF Dose Instruction: TAKE 1 CAPSULE BY MOUTH ONCE A DAY Rx Instructions: TAKE 1 CAPSULE BY MOUTH ONCE A DAY lisinopril 10 mg tablet See Rx Instructions .ROUTE .COMPLEX Qty: 30 0RF Dose Instruction: TAKE ONE TABLET BY MOUTH ONCE A DAY FOR BLOOD PRESSURE Rx Instructions: TAKE ONE TABLET BY MOUTH ONCE A DAY FOR BLOOD PRESSURE fenofibrate 54 mg tablet See Rx Instructions .ROUTE .COMPLEX Qty: 30 0RF Dose Instruction: TAKE ONE TABLET BY MOUTH ONCE A DAY Rx Instructions: TAKE ONE TABLET BY MOUTH ONCE A DAY Referrals Follow up/Referrals: Kj Mcdaniel MD [Staff Physician] - See instructions Albaro Roy DO [Primary Care Provider] - See instructions Activity Restrictions/Add. Instructions Additional Instructions/Restrictions: As we discussed I have referred you to general surgery for evaluation of a hemorrhoid. Please use Anusol versus Preparation H any of the [id number] hemorrhoid topical creams. He also may benefit from sitting in a warm bath. If you have any new or worsening signs or symptoms follow-up with your PCP return to the ER as needed. Clinical Impressions Clinical Impression: Hemorrhoids Qualifiers: Hemorrhoid type: unspecified Qualified Code(s): K64.9 - Unspecified hemorrhoids Stand Alone Forms Stand Alone Forms: Work/School Release Instructions Patient Instructions: DI for Hemorrhoids Print Language Print Language: Mongolian Discharge ED Provider: Caty Whitaker General Adult HPI General Chief complaint: PAIN Stated complaint: COnsistant pain in genital area Time Seen by Provider: 09/07/24 15:07 History of Present Illness HPI narrative: Patient presents for rectal pain. Patient reports that he had a very hard and difficult bowel movement several days ago and felt pain during it. The pain has persisted since Saturday. He denies any nausea vomiting diarrhea hemoptysis hematochezia melena hematemesis hematuria. He has been able to pass stool but is very painful and he is passing flatus. Related Data Previous Rx's ?Medication ?Instructions ?Recorded tizanidine 2 mg tablet See Rx Instructions .Route 07/02/24 .COMPLEX #120 tabs oxycodone-acetaminophen 10 mg-325 1 tab PO Q4-6H PRN pain #120 tabs 25 mg tablet oxycodone-acetaminophen 10 mg-325 1 tab PO Q4-6H PRN pain #120 tabs 25 mg tablet pravastatin 80 mg tablet 80 mg PO DAILY #30 tabs 07/31/24 cholecalciferol (vitamin D3) 125 See Rx Instructions .Route 08/31/24 mcg (5,000 unit) capsule .COMPLEX #30 caps fenofibrate 54 mg tablet See Rx Instructions .Route 09/03/24 .COMPLEX #30 tabs lisinopril 10 mg tablet See Rx Instructions .Route 09/03/24 .COMPLEX #30 tabs Allergies Allergy/AdvReac Type Severity Reaction Status Date / Time No Known Allergies Allergy Verified 07/30/24 15:42 [facility] Disclaimer: The information contained in this section may have been updated after the patient was seen, as this information can be updated by other users. Medical History (Updated 09/07/24 @ 17:00 by ROOSEVELT Mora) History of COVID-19 Cervicothoracic interspinous bursitis Facial lesion Hyperlipidemia Hypertension Surgical History History of colonoscopy History of appendectomy Family History Other Colon cancer Social History Smoking Status: Never smoker second hand exposure: No alcohol intake: never counseling provided: none substance use type: denies use current occupational status: other Travel in the last 8 weeks: None housing: house current occupation: [employer] current occupational exposures/hazards: No caffeine: Yes Have you lived/traveled outside [place] in past 30 days?: No Contact w/someone who lives/traveled outside US past 30 days?: No Exposure to someone with infectious disease in past 14 days?: No Do you have a fever (greater than 100.4 F or 38 C)?: No Have you tested positive for COVID-19: No Exposed to someone with COVID-19 in past 14 days?: No Do you have a sore throat?: No Do you have a cough?: No Do you have any weakness?: No Do you have any diarrhea?: No Are you experiencing any unusual bleeding?: No Do you have any muscle aches/pain?: No Do you have any abdominal pain?: No Are you experiencing loss of taste or smell?: No Other Medical History Have you received the Flu Vaccine for this season: No Have you received the Pneumonia Vaccine: No ROS Obtained: Yes Systems reviewed as appropriate & no additional complaints except as documented Physical Exam General General appearance: alert Respiratory Respiratory exam: Present normal lung sounds bilaterally Cardiovascular Cardiovascular exam: Present regular rate Neurological Exam Neurological exam: Present alert and oriented X3 Medical Decision Making Medical Records Screening: Per USPSTF and CDC recommendations, given the prevalence of disease in our region, it is our hospital?s policy to screen for HIV and viral Hepatitis for all patients aged 18 and over and those with ongoing risk factors. Henok Inquiry Pt receiving controlled substance: No Vital Signs: 09/07/24 15:08 09/07/24 17:10 Temperature 98.0 F 98.0 F Temperature Source Oral Pulse Rate 98 H Pulse Rate [Left Radial] 107 H Respiratory Rate 19 19 Blood Pressure 158/109 H Blood Pressure [Right Arm] 163/96 H Blood Pressure Mean [Right Arm] 118 02 Sat by Pulse Oximetry 100 Oxygen Delivery Method Room Air Medical Decision Narrative: In summary patient is a 59-year-old male who presents to the emergency department for evaluation of rectal pain. Patient is hemodynamically stable but with a blood pressure 163/96 heart rate of 107 with sinus tachycardia on the bedside monitor upon arrival, afebrile at 98.0. Physical exam reveals stigmata of previous hemorrhoids with anal piles and close inspection reveals that he has a hemorrhoid that actually is internal slightly extruding from the rectum. I do not feel disruption in the anal ring. Digital rectal exam reveals a large painful area on the right side consistent with an internal hemorrhoid.. Diff erential diagnosis includes hemorrhoid versus anal fissure. Initial workup was considered with labs and imaging however patient has no red flags to indicate further workup. Given this I have educated patient on sitz bath's and topical preparations for the discomfort. I have referred him to general surgery for further evaluation. Patient to follow-up with PCP for continued new or worsening signs or symptoms as needed. I recommend the patient start MiraLAX and titrate to 2-3 loose stools a day Critical Care Critical Care Time Critical Care Time: No
[2024-09-07 17:10] VITALS: BP 158/109; PULSE 98; RESP 19; TEMP 36.7
== END 2024-09-07 17:10 | disposition home or self-care (01) ==
PROVIDERS: Emergency Provider Emergency Medicine; PCP Internal Medicine
DX: K64.9 Unspecified hemorrhoids (principal); K62.89 Other specified diseases of anus and rectum
CPT/HCPCS: 99281

== ENCOUNTER 2024-09-14 14:28 | Emergency (ER) | payer BC, SELFPAY ==
[2024-09-14 15:12] VITALS: BP 176/95; PULSE 74; RESP 16; TEMP 36.6; O2SAT 97; BMI 36.0
--- NOTE | 2024-09-14 16:37 | CT_ITS ---
PROCEDURE INFORMATION: Exam: CT Abdomen And Pelvis With Contrast Exam date and time: 09/14/2024 6:10 PM Age: 59 years old Clinical indication: Other: Significant gluteal pain/induration l>r TECHNIQUE: Imaging protocol: Computed tomography of the abdomen and pelvis with contrast. Radiation optimization: All CT scans at this facility use at least one of these dose optimization techniques: automated exposure control; mA and/or kV adjustment per patient size (includes targeted exams where dose is matched to clinical indication); or iterative reconstruction. Contrast material: ISOVUE; Contrast volume: 75 ml; Contrast route: IV; [facility] pelvis wo con 10/18/2017 18:38 FINDINGS: Lungs: Mild scarring and atelectasis in the lower lungs. Coronary arteries: Coronary artery calcifications. Diaphragm: Small hiatal hernia. Liver: Hepatic steatosis. Gallbladder and biliary ducts: Normal. No calcified stones. No ductal dilation. Pancreas: Scattered pancreatic calcifications could represent chronic pancreatitis. Spleen: Normal. No splenomegaly. Adrenal glands: Normal. No mass. Kidneys and ureters: Low attenuation renal lesions measuring up to 17 mm in diameter are incompletely characterized, but are likely cysts. No followup imaging is warranted. Bilateral nonobstructing renal calcifications favored to be vascular.There is a possible nonobstructing left renal calculus on image 50 series 3. Stomach and bowel: Few scattered colonic diverticula without diverticulitis. Appendix: Appendix is absent. Intraperitoneal space: Unremarkable. No free air. No significant fluid collection. Vasculature: The arteries demonstrate moderate to severe atherosclerotic disease. Lymph nodes: Unremarkable. No enlarged lymph nodes. Urinary bladder: Unremarkable as visualized. Reproductive: Unremarkable as visualized. Anus: There is right-sided perianal fluid collection with thick periphery measuring 2.9 x 1.5 cm image 131 series 3. There is a questionable connection to the 12/1 o'clock position of the anus. Bones/joints: Unremarkable. No acute fracture. Soft tissues: Unremarkable. Other findings: Stigmata of old granulomatous disease. IMPRESSION: 1. There is right-sided perianal fluid collection with thick periphery measuring 2.9 x 1.5 cm image 131 series 3. There is a questionable connection to the 12/1 o'clock position of the anus. This is most likely perianal abscess with possible perianal fistula. No intrapelvic component. 2. Hepatic steatosis. COMMENTS: Consistent with the [employer]'s Incidental Findings Committee white paper (J Am Krystal Radiol 2018): Any incidental renal lesion less than 1 cm or classified as too small to characterize, or any incidental cystic renal lesion characterized as simple-appearing, is likely benign. No follow-up imaging is recommended for these lesions per consensus recommendations based on imaging criteria.
--- NOTE | 2024-09-14 16:43 | HMH.EDGENADL ---
Discharge Plan Disposition Patient Disposition: Home, Self-Care Condition: Good Prescriptions Prescriptions: New amoxicillin-pot clavulanate 875-125 mg tablet 1 tab PO BID Qty: 20 0RF ketorolac 10 mg tablet 10 mg PO Q8H PRN (Reason: pain) 3 Days Qty: 12 0RF No Action oxycodone-acetaminophen 10-325 mg tablet 1 tab PO Q4-6H PRN (Reason: pain) Qty: 120 0RF oxycodone-acetaminophen 10-325 mg tablet 1 tab PO Q4-6H PRN (Reason: pain) Qty: 120 0RF tizanidine 2 mg tablet See Rx Instructions .ROUTE .COMPLEX Qty: 120 0RF Dose Instruction: TAKE ONE TABLET BY MOUTH 3 TIMES A DAY NEEDED FOR MUSCLE SPASMS. (MAY TAKE 2 TABLETS AT BEDTIME) Rx Instructions: TAKE ONE TABLET BY MOUTH 3 TIMES A DAY NEEDED FOR MUSCLE SPASMS. (MAY TAKE 2 TABLETS AT BEDTIME) pravastatin 80 mg tablet 80 mg PO DAILY Qty: 30 2RF cholecalciferol (vitamin D3) 125 mcg (5,000 unit) capsule See Rx Instructions .ROUTE .COMPLEX Qty: 30 0RF Dose Instruction: TAKE 1 CAPSULE BY MOUTH ONCE A DAY Rx Instructions: TAKE 1 CAPSULE BY MOUTH ONCE A DAY lisinopril 10 mg tablet See Rx Instructions .ROUTE .COMPLEX Qty: 30 0RF Dose Instruction: TAKE ONE TABLET BY MOUTH ONCE A DAY FOR BLOOD PRESSURE Rx Instructions: TAKE ONE TABLET BY MOUTH ONCE A DAY FOR BLOOD PRESSURE fenofibrate 54 mg tablet See Rx Instructions .ROUTE .COMPLEX Qty: 30 0RF Dose Instruction: TAKE ONE TABLET BY MOUTH ONCE A DAY Rx Instructions: TAKE ONE TABLET BY MOUTH ONCE A DAY Referrals Follow up/Referrals: jK Mcdaniel MD [Staff Physician] - See instructions Albaro Roy DO [Primary Care Provider] - See instructions Activity Restrictions/Add. Instructions Additional Instructions/Restrictions: You were evaluated in the emergency department today. You have an abscess next to your rectum/anus. I spoke with Dr. Mcdaniel with general surgery who recommended to call his office in the morning to be seen in clinic tomorrow. Do not eat or drink anything after midnight, as there is a good possibility that he may take you to the operating room for surgical intervention. Do not take any blood thinners or aspirin. 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 Return to the emergency department for new or worsening symptoms. Clinical Impressions Clinical Impression: Abscess, perianal Stand Alone Forms Stand Alone Forms: Work/School Release Instructions Patient Instructions: DI for Acute Pain -- Adult, DI for Anal Abscess Print Language Print Language: Burmese Discharge ED Provider: Caty Whitaker General Adult HPI General Chief complaint: PAIN Stated complaint: burning feeling in anus Time Seen by Provider: 09/14/24 16:21 Mode of Arrival: Ambulatory Source of Information: Patient Description of Symptoms (Recalled from ER Triage Doc. by RN): Patient reports being here 1 week ago with the complaint of rectal pain. States he was diagnosed with a hemorrhoid and that it just hasn't gotten any better. Reports missing work all week due to pain. History of Present Illness HPI narrative: This patient is a 59-year-old male presenting to the emergency department for significant gluteal pain and rectal pain that is worsened since being evaluated here 09/03/2024. Patient states that he started having some rectal pain at that time and was told that he had hemorrhoids. He picked up [id number] medications, including a topical cream and a suppository and has been using those at home, but his pain has significantly worsened and he states that he is not even able to go to work it so severe. He now states that his entire cleft is painful, red, and he cannot stand to touch it or wipe. He is not sure if it is from a reaction to the medications or what may be going on. No fevers or systemic symptoms noted. Related Data Previous Rx's ?Medication ?Instructions ?Recorded tizanidine 2 mg tablet See Rx Instructions .Route 07/02/24 .COMPLEX #120 tabs oxycodone-acetaminophen 10 mg-325 1 tab PO Q4-6H PRN pain #120 tabs 07/30/24 mg tablet oxycodone-acetaminophen 10 mg-325 1 tab PO Q4-6H PRN pain #120 tabs 07/30/24 mg tablet pravastatin 80 mg tablet 80 mg PO DAILY #30 tabs 07/31/24 cholecalciferol (vitamin D3) 125 See Rx Instructions .Route 08/31/24 mcg (5,000 unit) capsule .COMPLEX #30 caps fenofibrate 54 mg tablet See Rx Instructions .Route 09/03/24 .COMPLEX #30 tabs lisinopril 10 mg tablet See Rx Instructions .Route 09/03/24 .COMPLEX #30 tabs amoxicillin 875 mg-potassium 1 tab PO BID #20 tabs 09/14/24 clavulanate 125 mg tablet ketorolac 10 mg tablet 10 mg PO Q8H PRN pain 3 days #12 09/14/24 tabs Allergies Allergy/AdvReac Type Severity Reaction Status Date / Time No Known Allergies Allergy Verified 07/30/24 15:42 [facility] Disclaimer: The information contained in this section may have been updated after the patient was seen, as this information can be updated by other users. Medical History History of COVID-19 Cervicothoracic interspinous bursitis Facial lesion Hyperlipidemia Hypertension Surgical History History of colonoscopy History of appendectomy Family History Other Colon cancer Social History Smoking Status: Unknown if ever smoked second hand exposure: No alcohol intake: never counseling provided: none substance use type: denies use current occupational status: other Travel in the last 8 weeks: None housing: house current occupation: [employer] current occupational exposures/hazards: No caffeine: Yes Have you lived/traveled outside US in past 30 days?: No Contact w/someone who lives/traveled outside US past 30 days?: No Exposure to someone with infectious disease in past 14 days?: No Do you have a fever (greater than 100.4 F or 38 C)?: No Have you tested positive for COVID-19: No Exposed to someone with COVID-19 in past 14 days?: No Do you have a sore throat?: No Do you have a cough?: No Do you have any weakness?: No Do you have any diarrhea?: No Are you experiencing any unusual bleeding?: No Do you have any muscle aches/pain?: No Do you have any abdominal pain?: No Are you experiencing loss of taste or smell?: No Other Medical History Have you received the Flu Vaccine for this season: No Have you received the Pneumonia Vaccine: No ROS Obtained: Yes All systems reviewed & no additional complaints except as documented Physical Exam General General appearance: alert and in no apparent distress Head Head exam: atraumatic and normocephalic Eye Eye exam: Present normal appearance, PERRL and EOMI ENT ENT exam: Present normal exam, normal oropharynx, mucous membranes moist and normal external ear exam Neck Neck exam: Present normal inspection, full ROM and trachea midline; Absent tenderness Chest Chest inspection: Present normal inspection and symmetric chest wall rise; Absent tenderness Respiratory Respiratory exam: Present normal lung sounds bilaterally; Absent respiratory distress, wheezes, stridor or accessory muscle use Cardiovascular Cardiovascular exam: Present regular rate and normal rhythm Abdominal Exam Abdominal exam: Present soft; Absent distention, tenderness or guarding Rectal Exam Rectal exam: Present hemorrhoids comment: Erythema to the gluteal cleft with tenderness and induration. Left perianal area with tenderness and induration. He does have hemorrhoids noted on exam. Extremities Exam Extremities exam: Present normal inspection, full ROM and normal capillary refill; Absent tenderness or edema Back Exam Back exam: Present normal inspection and full ROM; Absent tenderness Neurological Exam Neurological exam: Present alert, oriented X3, CN II-XII intact and normal gait; Absent motor sensory deficit Psychiatric Psychiatric exam: Present normal affect and normal mood Skin Skin exam: Present warm and dry Medical Decision Making Medical Records Medical records reviewed: Yes I reviewed the patient's medical records. Screening: Per USPSTF and CDC recommendations, given the prevalence of disease in our region, it is our hospital?s policy to screen for HIV and viral Hepatitis for all patients aged 18 and over and those with ongoing risk factors. [place] Inquiry Pt receiving controlled substance: No Vital Signs: 09/14/24 15:12 09/14/24 19:17 Temperature 97.9 F 98.9 F Temperature Source Oral Pulse Rate 74 Pulse Rate [Radial] 74 Respiratory Rate 16 22 Blood Pressure 127/70 Blood Pressure [Right Arm] 176/95 H Blood Pressure Mean [Right Arm] 122 Blood Pressure Source [Right Arm] Automatic Cuff Blood Pressure Position [Right Arm] Sitting 02 Sat by Pulse Oximetry 97 Oxygen Delivery Method Room Air Room Air Lab Data Lab results reviewed: Yes I reviewed the patient's lab results. Lab Results 09/14/24 17:25: WBC 13.0 H, RBC 4.77, Hgb 14.0 L, Hct 40.8 L, MCV 85.5, MCH 29.4, MCHC 34.3, RDW 12.0, Plt Count 445 H, MPV 9.9, Neut % (Auto) 78.4, Lymph % (Auto) 12.7, [place] % (Auto) 7.5, Eos % (Auto) 0.5, Baso % (Auto) 0.5, Neut # (Auto) 10.2 H, Lymph # (Auto) 1.7, [place] # (Auto) 1.0, Eos # (Auto) 0.1, Baso # (Auto) 0.1, ESR 77 H, Sodium 134 L, Potassium 4.5, Chloride 101, Carbon Dioxide 28, Anion Gap 9.5, BUN 12, Creatinine 0.80, Estimated Creat Clear 149, Estimated GFR 99, Est GFR ( Amer) 120, Glucose 142 H, Calcium 10.2, Total Bilirubin 0.4, AST 30, ALT 37, Alkaline Phosphatase 72, C-Reactive Protein 35.3 H, Total Protein 7.9, Albumin 4.9, Globulin 3.0, Albumin/Globulin Ratio 1.6 09/14/24 17:25 09/14/24 17:25 Orders (Tests/Meds): ED MEDICATIONS Discontinued Medications Generic Name Dose Route Start Last Admin Trade Name Freq PRN Reason Stop Dose Admin Acetaminophen 1,000 mg 09/14/24 16:59 09/14/24 17:32 Acetaminophen 500mg Tab PO 09/14/24 17:00 1,000 mg ONCE ONE Administration Amoxicillin/Clavulanate Potassium 1 each 09/14/24 19:10 09/14/24 19:20 Amoxicillin/Clavulanate Potassium 875/125mg Tablet PO 09/14/24 19:11 1 each ONCE ONE Administration Iopamidol 75 ml 09/14/24 18:11 09/14/24 18:12 Iopamidol-370 (76%);100ml Bottle IV 09/14/24 18:12 75 ml ONCE ONE Administration Ketorolac Tromethamine 30 mg 09/14/24 16:59 09/14/24 17:32 Ketorolac 30mg/Ml Vial IV 09/14/24 17:00 30 mg ONCE ONE Administration Sodium Chloride 10 ml 09/14/24 18:11 09/14/24 18:12 Sodium Chloride 0.9% 10ml Syr (Rad Only) IV 09/14/24 18:12 10 ml ONCE ONE Administration ORDERS Category Date Time Status CT abdomen pelvis w con Stat Cat Scan 09/14/24 16:37 Completed General Surgery Consult [Consult to General Surgery] [ Cons 09/14/24 19:07 Ordered CONS] Stat CRP [C-Reactive Protein] Stat Lab 09/14/24 17:25 Completed Complete Blood Count Auto Diff Stat Lab 09/14/24 17:25 Completed Comprehensive Metabolic Panel Stat Lab 09/14/24 17:25 Completed ESR [Erythrocyte Sedimentation Rate] Stat Lab 09/14/24 17:25 Completed Medical Decision Narrative: In summary, this patient is a 59-year-old male presenting to the Emergency Department for evaluation of significant gluteal and rectal pain. Differential diagnoses considered include but are not limited to hemorrhoids, anal fissure, perirectal abscess, perianal abscess. Ruling out the most morbid conditions drove assessment. It should be noted patient's history includes hypertension, hyperlipidemia, obesity which are not at goal therapy. This complicates all aspects of care by increasing patient's risk for morbidity. I reviewed patient's past medical records and noted evaluation here 09/03/2024 and diagnosis of hemorrhoids with discharged home with instructions for supportive care. He has appointment scheduled for follow-up. On exam, the patient is lying in bed in no acute distress. Vitals are reassuring on cardiac telemetry with exception of hypertension. He has significant gluteal erythema, induration, tenderness to palpation especially the left gluteal cleft. This could be from a contact reaction related to topical medication that he was using, as he states that this started after initiating those things. I am also concerned, however, for potential developing perirectal/perianal abscess. Workup included CBC, CMP, ESR, CRP, CT abdomen pelvis with IV contrast. He was given IV Toradol and oral Tylenol for symptomatic improvement. I independently interpreted CT scan prior to the radiologist read and noted perianal abscess. Please see their read for final interpretation. Labs were obtained that demonstrated mild leukocytosis, elevation in inflammatory markers. On reassessment, patient had good improvement after administration of interventions above. He is resting comfortably and is nontoxic-appearing, afebrile with reassuring vital signs and cardiac telemetry. I called and had an interactive discussion with Dr. Mcdaniel with general surgery given the perianal abscess, as radiology noted they could not exclude fistula. Dr. Mcdaniel advise that the patient can be discharged home to follow-up in his clinic tomorrow. He advised making him n.p.o. after midnight for possible surgical intervention, which was done. He advised Augmentin for antibiotic treatment. Patient was given oral Augmentin here and was discharged with prescription for Augmentin, instructions for close follow-up with Dr. Beverly tomorrow, and instructions to be n.p.o. after midnight. Patient is in agreement. He was discharged after all questions were answered Critical Care Critical Care Time Critical Care Time: No
[2024-09-14] MEDS: KETOROLAC 30MG/ML VIAL 30 MG IV (17:32)
[2024-09-14] MEDS: ACETAMINOPHEN 500MG TAB 1000 MG PO (17:32)
[2024-09-14 17:35] LABS: Basophils # 0.1 K/mm3 (0-0.2); Basophils % 0.5 % (0.1-2.0); Eosinophils # 0.1 K/mm3 (0.0-0.4); Eosinophils % 0.5 % (0.1-12.0); Hematocrit 40.8 % (42.0-52.0); Lymphocytes # 1.7 K/mm3 (0.7-4.5); Lymphocytes % 12.7 % (10-50); Mean Corpuscular HGB Conc 34.3 g/dL (31.8-35.4); Mean Corpuscular Hemoglobin 29.4 pg (27.0-31.2); Mean Corpuscular Volume 85.5 fl (80-94); Mean Platelet Volume 9.9 fl (7.4-10.4); Monocytes % 7.5 % (1.7-9.3); Neutrophils # 10.2 K/mm3 (1.8-7.8); Neutrophils % 78.4 % (37.0-80.0); Platelet Count 445 K/mm3 (142-424); Red Blood Count 4.77 M/mm3 (4.60-6.20)
[2024-09-14 17:47] LABS: Alanine Aminotransferase 37 U/L (12-78); Albumin Level 4.9 g/dl (3.5-5.0); Albumin/Globulin Ratio 1.6 (1.1-1.8); Alkaline Phosphatase 72 U/L (38-126); Anion Gap 9.5 mEq/L (5-15); Aspartate Amino Transferase 30 U/L (17-59); Bilirubin,Total 0.4 mg/dl (0.2-1.3); Blood Urea Nitrogen 12 mg/dl (9-20); Calcium 10.2 mg/dl (8.4-10.2); Carbon Dioxide 28 mmol/L (22.0-30.0); Chloride 101 mmol/L (98-107); Creatinine Clearance Estimated 149 mL/min (50-200); Estimated Glomerular Filt Rate 99 ml/min (>60); GFR (African American) 120 ML/MIN (>60); Glucose 142 mg/dl (74-100); Potassium 4.5 mmoL/L (3.5-5.1); Sodium 134 mmol/L (136-145); Total Protein,Serum 7.9 g/dl (6.3-8.2)
[2024-09-14 17:53] LABS: C-Reactive Protein 35.3 mg/L (0-4)
[2024-09-14] MEDS: SODIUM CHLORIDE 0.9% 10ML SYR (RAD ONLY) 10 ML IV (18:12)
[2024-09-14] MEDS: IOPAMIDOL-370 (76%);100ML BOTTLE 75 ML IV (18:12)
[2024-09-14 18:58] LABS: Erythrocyte Sedimentation Rate 77 mm/hr (0-20)
[2024-09-14 19:17] VITALS: BP 127/70; PULSE 74; RESP 22; TEMP 37.2; O2SAT 97
[2024-09-14] MEDS: AMOXICILLIN/CLAVULANATE POTASSIUM 875/125MG TABLET 1 EACH PO (19:20)
== END 2024-09-14 19:26 | disposition home or self-care (01) ==
PROVIDERS: Emergency Provider Emergency Medicine; PCP Internal Medicine
DX: K61.0 Anal abscess (principal); K62.89 Other specified diseases of anus and rectum
CPT/HCPCS: 74177; 80053; 85025; 85651; 86140; 96374; 99285; J1885; Q9967

== ENCOUNTER 2024-09-15 10:38 | Day surgery (SDC) | payer BC, SELFPAY ==
[2024-09-15] VITALS (10 sets, daily range): BP systolic 135–167; BP diastolic 55–103; PULSE 82–109; RESP 16–18; TEMP 36.3–43; O2SAT 93–98; BMI 36.0
--- NOTE | 2024-09-15 11:13 | P.PNANES_ITS ---
[facility] Disclaimer: The information contained in this section may have been updated after the patient was seen, as this information can be updated by other users. Medical History History of COVID-19 Cervicothoracic interspinous bursitis Facial lesion Hyperlipidemia Hypertension Surgical History History of colonoscopy History of appendectomy Family History Other Colon cancer Social History (Updated 09/15/24 @ 11:01 by Tolu Jackman) Smoking Status: Former smoker tobacco type: smokeless tobacco second hand exposure: No alcohol intake: never counseling provided: none substance use type: denies use current occupational status: other Travel in the last 8 weeks: None housing: house current occupation: [employer] current occupational exposures/hazards: No caffeine: Yes Have you lived/traveled outside US in past 30 days?: No Contact w/someone who lives/traveled outside US past 30 days?: No Exposure to someone with infectious disease in past 14 days?: No Do you have a fever (greater than 100.4 F or 38 C)?: No Have you tested positive for COVID-19: No Exposed to someone with COVID-19 in past 14 days?: No Do you have a sore throat?: No Do you have a cough?: No Do you have any weakness?: No Are you experiencing any nausea/vomitting?: No Do you have any diarrhea?: No Are you experiencing any unusual bleeding?: No Do you have any muscle aches/pain?: No Do you have any abdominal pain?: No Are you experiencing loss of taste or smell?: No [facility] Anesthesia Checklist Patient Identification Patient Identification: Arm Band Structural Data Admitted From: Home Planned Operative Procedure/s: I&D Perianal Abscess Consent for Planned Operative Procedure(s) Verified: Yes Verified Documents: Surgical Consent and History and Physical NPO Status Verified Time NPO: 00:00 Additional verifications Anesthesia Reactions: No Hx Blood Transfusions: No Blood Transfusion Reaction: No Airway Assessment Mallampati Score:: Class II C-Spine Mobility Assessed: Yes TMJ Mobility Assessed: Yes Dentition: Good Dentition Neurological Assessment Level of Consciousness: Awake, Alert and Appropriate Anesthesia Plan Anesthesia Risk discussed: Yes Anesthesia Plan: Verified ASA Class: II Anesthesia Type: General
[2024-09-15] MEDS: AMPICILLIN/SULBACTAM 3 GM in 0.9 % SODIUM CHLORIDE 100 ML IV (11:30)
[2024-09-15] MEDS: ROPIVACAINE 0.5% 30ML VIAL 150 MG (11:57)
[2024-09-15] MEDS: LIDOCAINE 1% 20ML MDV 20 ML (11:57)
--- NOTE | 2024-09-15 12:06 | EXP.OP.NOTE ---
Date of procedure: 09/15/24 Pre-op Diagnosis:: Perianal abscess Post-op Diagnosis:: Same Procedure performed:: Incision and drainage debridement of complex right perianal abscess Surgeon:: Kj Mcdaniel MD HEAT SET OPERATOR:: Nathanael Fiore Anesthesia: GETHeidi Estimated blood loss (mL): 10 Operative findings:: Patient had a large complex right perianal abscess. There were findings possibly consistent with fistulous abscess with internal opening draining pus. Perianal overlying skin was then necrotic and fluctuant. Operative note:: Consent was obtained patient was taken the operating room. He was given preoperative intravenous antibiotic. In the operating room he was placed in a supine position. General anesthesia was induced. He was positioned in lithotomy position. The area was prepped and draped in the standard surgical fashion. Digital examination was performed. There was evidence of possible drainage of pus from the anus. [place] anoscope was inserted. There appeared to be internal opening with some purulent drainage in the right lateral area at the dentate line. This was probed and there was significant amount of pus which exuded from the internal opening. This was sent for cultures. The skin in the perianal location overlying the external area was necrotic with fluctuance. Limited incision was made initially. There was gas and pus which exuded from the external wound. This was probed and purulence was evacuated. The overlying necrotic skin was debrided with electrocautery. Wound was irrigated. Local anesthetic was infiltrated. Consideration was given for possible drainage seton. However it is felt that the internal opening may close spontaneously. Therefore the wound was packed with half-inch iodoform gauze and covered with clean dry sterile dressing. Plan will be for return to the operating room for exam under anesthesia in 48 hours with possible drain placement or draining seton placement. Condition: stable Disposition: PACU Complications:: None immediately apparent
--- NOTE | 2024-09-15 12:15 | EXP.ANES.I ---
[facility] Anesthesia Record Part I Anesthesia Record I Intake, IV Amount: 500 Hydration: Adequate Estimated blood loss (mL): 5 Urine output (mL): 0 Blood Products used (#): none Blood Pressure: 135/93 SaO2: 93 Pulse Rate: 84 Airway Patency: Patent Respiratory Rate: 16 Temperature: 97.5 F Patient is:: Drowsy and Stable
--- NOTE | 2024-09-16 15:02 | EXP.ANES.II ---
[facility] Anesthesia Record Part II Anesthesia Record Part II Discharge Time: 12:40 Destination: Surgical Day Care (OP Surgery) PACU nurse assessment reviewed?: Yes Patient Condition:: Good Anesthesia Complications:: None Swallowing reflex intact?: Yes Airway Patency: Patent Cyanosis?: No Blood Pressure: 138/61 SaO2: 95 Respiratory Rate: 16 Pulse Rate: 82 Temperature: 97.4 F Mental Status: Alert & Oriented Pain level:: 0 Nausea and/or vomitting:: None Intake, IV Amount: 0 Hydration: Adequate
[2024-09-16 15:03] VITALS: BP 138/61; PULSE 82; RESP 16; TEMP 36.3; O2SAT 95
== END 2024-09-15 13:15 | disposition home or self-care (01) ==
PROVIDERS: PCP Internal Medicine; Visit Provider Surgery
PROC: (CPT 56405; principal; 2024-09-15 11:30)
DX: K61.0 Anal abscess (principal)
CPT/HCPCS: 46050; 87070; 87075; 87077; 87186; 87205; J0295; J1100; J2250; J2405; J3010

== ENCOUNTER 2024-09-17 10:31 | Day surgery (SDC) | payer BC, SELFPAY ==
[2024-09-17] VITALS (9 sets, daily range): BP systolic 135–166; BP diastolic 70–94; PULSE 14–97; RESP 14–18; TEMP 30.9–36.7; O2SAT 92–98; BMI 36.0
[2024-09-17] MEDS: LIDOCAINE 1% 20ML MDV 20 ML (12:04)
[2024-09-17] MEDS: ROPIVACAINE 0.5% 30ML VIAL 150 MG (12:04)
--- NOTE | 2024-09-17 12:19 | P.OP_ITS ---
Date of procedure: 09/17/24 Pre-op Diagnosis:: Perianal abscess with fistula Post-op Diagnosis:: Same Procedure performed:: Exam under anesthesia, washout of perianal abscess, seton placement Surgeon:: Kj Mcdaniel MD ALLIED HEALTH PROFESSIONAL:: Miguel Lainez Anesthesia: GETA Estimated blood loss (mL): 2 Clinical Note:: Patient presented to the office after being seen in the emergency department the evening before on 10/06 for evaluation of left perianal abscess. He was found to have a large somewhat necrotic right lateral perianal abscess. He was brought to the operating room on 10/06 at which time he underwent incision and drainage of complex perianal abscess and he was found to have appreciable internal opening is a fistulous abscess. The abscess cavity was evacuated and packed. Plan was made for 48-hour return to the operating room for exam under anesthesia with repeat washout and either drain or draining seton placement. Operative findings:: He had shown improvement in the surrounding inflammatory response. There was abscess cavity with patent internal opening is a fistulous abscess. Operative note:: Consent was obtained patient was taken to the operating room. He was positioned in a supine position. General anesthesia was induced. He was repositioned in lithotomy position. Previous dressing and packing were removed. He was prepped and draped in the standard surgical fashion. A bivalve anoscope was inserted. Wound was probed. There was still a moderate residual abscess cavity. The surrounding inflammation has shown improvement. With probing of the wound there was a clear fistulous tract to patent internal opening. Given this plan was made for placement of draining seton. A couple of Vesseloops were passed through the fistulous tract using DeBakey. They were tied to 1 another with 0 Nurolon suture. Seton was then cut to the appropriate length. Local anesthetic was infiltrated into the region of the abscess cavity. Dry dressing was applied. Condition: stable Disposition: PACU Complications:: None immediately apparent
--- NOTE | 2024-09-17 12:27 | P.PNANES_ITS ---
[facility] Disclaimer: The information contained in this section may have been updated after the patient was seen, as this information can be updated by other users. Medical History History of COVID-19 Cervicothoracic interspinous bursitis Facial lesion Hyperlipidemia Hypertension Surgical History (Updated 09/17/24 @ 11:07 by Lore Gutierrez RN) History of incision and drainage History of colonoscopy History of appendectomy Family History Other Colon cancer Social History Smoking Status: Former smoker tobacco type: smokeless tobacco second hand exposure: No alcohol intake: never counseling provided: none substance use type: denies use current occupational status: other Travel in the last 8 weeks: None housing: house current occupation: [employer] current occupational exposures/hazards: No caffeine: Yes Have you lived/traveled outside US in past 30 days?: No Contact w/someone who lives/traveled outside US past 30 days?: No Exposure to someone with infectious disease in past 14 days?: No Do you have a fever (greater than 100.4 F or 38 C)?: No Have you tested positive for COVID-19: No Exposed to someone with COVID-19 in past 14 days?: No Do you have a sore throat?: No Do you have a cough?: No Do you have any weakness?: No Do you have any diarrhea?: No Are you experiencing any unusual bleeding?: No Do you have any muscle aches/pain?: No Do you have any abdominal pain?: No Are you experiencing loss of taste or smell?: No [facility] Anesthesia Checklist Patient Identification Patient Identification: Arm Band and Family Structural Data Planned Operative Procedure/s: I and D washout pereneum Consent for Planned Operative Procedure(s) Verified: Yes Verified Documents: Surgical Consent and History and Physical NPO Status Verified Time NPO: 00:00 Additional verifications Patient : No Anesthesia Reactions: No Hx Blood Transfusions: No Blood Transfusion Reaction: No Cephalosporin Allergy: No Previous Colonoscopy: No Airway Assessment Mallampati Score:: Class III C-Spine Mobility Assessed: Yes TMJ Mobility Assessed: Yes Dentition: Poor Dentition Neurological Assessment Level of Consciousness: Awake, Alert, Appropriate and Follows Commands Hx Seizures: Yes Anesthesia Plan Anesthesia Risk discussed: Yes ASA Class: II Anesthesia Type: General
--- NOTE | 2024-09-17 12:30 | EXP.ANES.I ---
[facility] Anesthesia Record Part I Anesthesia Record I Intake, IV Amount: 800 Hydration: Adequate Estimated blood loss (mL): 10 Urine output (mL): 0 Blood Products used (#): none Blood Pressure: 135/92 SaO2: 92 Pulse Rate: 14 Airway Patency: Patent Respiratory Rate: 14 Temperature: 87.6 F Patient is:: Drowsy and Stable Stable to PACU at:: 12:20
--- NOTE | 2024-09-18 07:17 | EXP.ANES.II ---
[facility] Anesthesia Record Part II Anesthesia Record Part II Discharge Time: 12:50 Destination: Surgical Day Care (OP Surgery) PACU nurse assessment reviewed?: Yes Patient Condition:: Good Anesthesia Complications:: None Swallowing reflex intact?: Yes Airway Patency: Patent Cyanosis?: No Blood Pressure: 143/91 SaO2: 97 Respiratory Rate: 16 Pulse Rate: 90 Temperature: 97.6 F Mental Status: Alert & Oriented Pain level:: 0 Nausea and/or vomitting:: None Intake, IV Amount: 0 Hydration: Adequate
[2024-09-18 07:18] VITALS: BP 143/91; PULSE 90; RESP 16; TEMP 36.4; O2SAT 97
== END 2024-09-17 13:22 | disposition home or self-care (01) ==
PROVIDERS: PCP Internal Medicine; Visit Provider Surgery
PROC: (CPT 46020; principal; 2024-09-17 11:20)
DX: K61.0 Anal abscess (principal)
CPT/HCPCS: 46020; J1100; J2250; J2405; J3010

== ENCOUNTER 2024-11-06 07:23 | Outpatient (CLI) | payer BC, SELFPAY ==
--- NOTE | 2024-11-06 07:30 | US_ITS ---
FINAL REPORT TECHNIQUE: Multiple transverse and longitudinal scans were performed of the right upper quadrant of the abdomen. CLINICAL HISTORY: Fatty liver COMPARISON: None FINDINGS: HEPATIC ULTRASOUND There is fatty infiltration of the liver. The portal vein is patent with normal directional flow. The gallbladder is visualized and the wall appears normal. There are no gallstones. Common duct is within normal limits. The right kidney is unremarkable. IMPRESSION: Fatty liver. Reviewed, Interpreted and Dictated by Lambert Pittman MD Transcribed by Arleen Tineo Authenticated and [facility]
== END 2024-11-06 23:59 | disposition home or self-care (01) ==
LOC: RAD 07:24
PROVIDERS: PCP Family Medicine; Visit Provider Family Medicine
DX: K76.0 Fatty (change of) liver, not elsewhere classified (principal)
CPT/HCPCS: 76705

== ENCOUNTER 2025-04-16 09:19 | Outpatient (CLI) | payer BC, SELFPAY ==
[2025-04-16 20:34] LABS: Hematocrit 40.4 % (42.0-52.0); Hemoglobin 13.3 g/dL (14.1-18.0); Immature Granulocytes % 0.3 %; Mean Corpuscular HGB Conc 32.9 g/dL (31.8-35.4); Mean Corpuscular Hemoglobin 28.5 pg (27.0-31.2); Mean Corpuscular Volume 86.5 fl (80-94); Nucleated Red Blood Cells % 0 %; Platelet Count 390 K/mm3 (142-424); Red Blood Count 4.67 M/mm3 (4.60-6.20); Red Cell Distribution Width-SD 38.9 fL; White Blood Count 7.8 K/mm3 (4.8-10.8)
[2025-04-16 21:28] LABS: Alanine Aminotransferase 49 U/L (12-78); Albumin Level 4.3 g/dl (3.5-5.0); Albumin/Globulin Ratio 1.9 (1.1-1.8); Alkaline Phosphatase 86 U/L (38-126); Anion Gap 13.8 mEq/L (5-15); Aspartate Amino Transferase 34 U/L (17-59); Bilirubin,Total 0.5 mg/dl (0.2-1.3); Blood Urea Nitrogen 16 mg/dl (9-20); Calcium 9.9 mg/dl (8.4-10.2); Carbon Dioxide 27 mmol/L (22.0-30.0); Chloride 102 mmol/L (98-107); Cholesterol 181 mg/dl (140-200); Creatinine,Serum 0.80 mg/dl (0.66-1.25); Estimated Glomerular Filt Rate 99 ml/min (>60); GFR (African American) 120 ML/MIN (>60); Globulin 2.3 g/dL (1.3-3.2); Glucose 99 mg/dl (74-100); HDL Cholesterol 57 mg/dl (40-60); Potassium 4.8 mmoL/L (3.5-5.1); Sodium 138 mmol/L (136-145); Total Protein,Serum 6.6 g/dl (6.3-8.2); Triglycerides 121 mg/dl (30-150)
[2025-04-16 21:45] LABS: 25-OH Vitamin D, Total 42.3 ng/mL (30-100)
[2025-04-16 21:59] LABS: Thyroid Stimulating Hormone 0.93 uIU/mL (0.465-4.68)
[2025-04-16 22:13] LABS: Hemoglobin A1C 6.1 % (4.0-6.0)
--- OUTSIDE RECORDS SUMMARY | 2025-04-19 09:23 | XMS_ITS | Clinical Summary ---
Author Organization Healthcare Address [address] [place] [address] Care Team Providers Care Bunker Worker Name Role Phone Jai Walton MD Primary Care Provider [phone] Social History Tobacco Use Types Packs/Day Years Used Date Smoking Tobacco: Never Assessed Sex and Gender Information Value Date Recorded Sex Assigned at Not on file Legal Sex Male 6:16 PM EDT Gender Identity Not on file Sexual Orientation Not on file Plan of Treatment Not on file Insurance [employer] Care Teams Bunker Worker Relationship Specialty Start Date End Date Jai Walton MD [address] [place] [id number] PCP - General 11/25/20
== END 2025-04-16 23:59 ==
LOC: LAB.DROPOF 04-19 09:19
PROVIDERS: PCP Family Medicine; Visit Provider Family Medicine
DX: E55.9 Vitamin D deficiency, unspecified (principal); Z12.5 Encounter for screening for malignant neoplasm of prostate; I10 Essential (primary) hypertension; E78.5 Hyperlipidemia, unspecified; R73.03 Prediabetes
CPT/HCPCS: 80053; 80061; 82306; 83036; 84443; 85025; G0103